=== PATIENT | male | born 1940 | race Caucasian/White ===

== ENCOUNTER 2016-08-13 09:00 | Emergency (ER) | payer MEDICARE, BC ==
[2016-02-23 07:06] VITALS: BMI 27.9
[~2016-08-13 09:00] MED LIST: ASPIRIN325 MG PO; CALTRATE-600600 MG PO; CARDURA2 MG PO; CORDARONE200 MG PO; COZAAR25 MG PO; FUROSEMIDE20 MG PO; GARLIC1 CAP PO; LASIX20 MG PO; LOVENOX40 MG/0.4 SC; MAGNESIUM OXID500 MG PO; MICRO-K10 MEQ PO; MIRALAX17 GM PO; OMEGA-3100 MG PO; OXYCODONE HCL5 MG PO; PLAVIX75 MG PO; PROSCAR5 MG PO; RESTORIL15 MG; RESTORIL15 MG PO; SAW PALMETTO450 MG PO; SENOKOT-S TABLE1 TAB PO; SYNTHROID150 MCG PO; SYNTHROID175 MCG PO; TENORMIN25 MG PO; TRIMETHOPRIM100 MG PO; VICODIN 5/500 T1 TAB
[2016-08-13 11:01] LABS: BASOPHILS 0.5 % (0.0-2.0); EOSINOPHILS 1.2 % (0-7); HEMATOCRIT 38.5 % (42.0-54.0); HEMOGLOBIN 12.8 g/dL (13.5-17.5); IMMATURE GRANULOCYTES 0.2 % (0-5); LYMPHOCYTES 11.2 % (15-50); MCH 31.8 pg (26.0-34.0); MCHC 33.2 g/dL (31.0-37.0); MCV 95.8 fL (80.0-100.0); NEUTROPHILS 77.9 % (40-80); PLATELET COUNT 134 10x3/uL (130-400); RBC 4.02 10x6/uL (4.20-6.10); WBC 6.4 10x3/uL (4.8-10.8)
[2016-08-13 11:38] LABS: ALBUMIN 3.3 g/dL (3.4-5.0); ALKALINE PHOSPHATASE 72 U/L (46-116); ALT (SGPT) 44 U/L (10-68); AMYLASE - SERUM 35 U/L (25-115); BILIRUBIN - TOTAL 0.63 mg/dL (0.2-1.3); CALC OSMOLALITY 275 mosm/kg (275-300); CALCIUM 8.1 mg/dL (8.5-10.1); CARBON DIOXIDE 30.2 mmol/L (21.0-32.0); CHLORIDE - SERUM 100 mmol/L (98-107); CREATININE - SERUM 0.7 mg/dL (0.6-1.3); GLUCOSE 119 mg/dL (74-106); LIPASE 96 U/L (73-393); MAGNESIUM - SERUM 2.5 mg/dL (1.8-2.4); POTASSIUM - SERUM 3.8 mmol/L (3.5-5.1); PROTEIN - SERUM 7.3 g/dL (6.4-8.2); SODIUM 136 mmol/L (136-145); UREA NITROGEN 22 mg/dL (7-18); eGFR NON AFRICAN AMERICAN > 90 mL/min (90-120)
[2016-08-14] MEDS ORDERED: K-DUR20 MEQ PO (20:19)
[2016-08-14] MEDS ORDERED: CORDARONE200 MG PO (20:19)
== END 2016-08-13 12:46 | disposition home or self-care (01) ==
LOC: D.ER 09:00
PROVIDERS: Emergency Medicine
DX: R10.9 Unspecified abdominal pain (principal); R18.8 Other ascites; I10 Essential (primary) hypertension; N40.0 Benign prostatic hyperplasia without lower urinary tract symptoms; E07.9 Disorder of thyroid, unspecified

== ENCOUNTER 2016-08-14 14:18 | Inpatient (IN) | payer MEDICARE, BC ==
[~2016-08-14] VITALS: Ht 167.6 cm; Wt 79.8 kg
[2016-08-14 15:39] LABS: TROPONIN-I 0.025 ng/mL (0.000-0.060)
--- NOTE | 2016-08-14 19:00 | NUR ---
REC'D IN ROOM FROM ER DEPT A 75 Y/O W/M PER SERVICES DR. DELAROSA WITH DX, ILEUS/ABDOMINAL PAIN. IV PATNT LEFT ARM OF DRLYNDSEY AT 75CC'S/HR. ALERT/ORIENTED X3 UP AD ROMERO IN ROOM.ASSESSMENT PER ADMIT PACKET.
[2016-08-14] MEDS ORDERED: K-DUR20 MEQ PO (20:19)
[2016-08-14] MEDS ORDERED: CORDARONE200 MG PO (20:19)
[2016-08-14 20:32] VITALS: BP 124/78; BMI 28.4
[2016-08-14 21:00] VITALS: BP 124/68
--- NOTE | 2016-08-14 21:30 | NUR ---
DR. DELAROSA HERE TO VISIT AND ASSESS PATIENT ORDERS REC'D.
--- NOTE | 2016-08-14 22:00 | NUR ---
PLACED ON TELM. SHOWS SB. HR 56-58. DENIES PAIN OR DISCOMFORT.
--- NOTE | 2016-08-14 23:45 | NUR ---
MEDS GIVEN PER MAR.
--- NOTE | 2016-08-15 00:30 | NUR ---
AWAKE ALERT WALKING IN HALLWAY.
[2016-08-15 01:30] VITALS: BP 106/51
[2016-08-15 04:00] VITALS: BP 128/58
--- NOTE | 2016-08-15 04:23 | NUR ---
STATES STOMACH STARTED BURNING AFTER HE DRANK SOME WATER. REMINDED PATIENT NPO STATUS EXCEPT MEDS FOR NOW.
[2016-08-15 05:35] LABS: CALC OSMOLALITY 268 mosm/kg (275-300); CALCIUM 8.9 mg/dL (8.5-10.1); CARBON DIOXIDE 30.9 mmol/L (21.0-32.0); CHLORIDE - SERUM 94 mmol/L (98-107); CKMB 4.2 U/L (0.0-3.6); CREATINE KINASE 168 UL (21-232); GLUCOSE 112 mg/dL (74-106); LIPASE 88 U/L (73-393); MAGNESIUM - SERUM 2.2 mg/dL (1.8-2.4); POTASSIUM - SERUM 3.5 mmol/L (3.5-5.1); SODIUM 132 mmol/L (136-145); THYROID STIMULATING HORMONE 6.67 uIU/mL (0.36-3.74); UREA NITROGEN 22 mg/dL (7-18); eGFR NON AFRICAN AMERICAN 69 mL/min (90-120)
[2016-08-15 05:48] LABS: AMYLASE - SERUM 44 U/L (25-115); CREATININE - SERUM 1.1 mg/dL (0.6-1.3)
--- NOTE | 2016-08-15 07:30 | NUR ---
TO XRAY PER WC FOR CXR.
--- NOTE | 2016-08-15 07:39 | HP ---
PATIENT: BRICE GEORGE MEDICAL RECORD: [id number] ACCOUNT: [id number] LOCATION:[id number] : 41 ADMISSION DATE: 08/14/16 HISTORY AND PHYSICAL EXAMINATION REASON FOR ADMISSION: Abdominal discomfort and jaw pain. HISTORY OF PRESENT ILLNESS: The patient is a 75-year-old male who incurred a myocardial infarction with congestive heart failure and cardiomyopathy last year. Dr. Andujar in February 2016 performed a sequential stenting of the LAD and circumflex arteries. He used drug-eluting stents. The patient went to a cardiac rehabilitation and had really done well. He states that yesterday afternoon, he has some right upper chest and jaw discomfort. Preceding that, he has been constipated for the last couple of days. He came to the Emergency Room for that reason, had an EKG and cardiac enzymes reportedly normal and was told to return home on his medications. He said his pain lasted about 5 minutes and resolved. ____ to have increasing abdominal discomfort and lack of bowel movements and nausea without vomiting, came back tonight and Dr. Graff felt he might have early small-bowel obstruction, has admitted the patient. He has had no further chest pain. PAST MEDICAL HISTORY: Raynaud's, congestive heart failure 2016 with CAD and myocardial infarction, paroxysmal atrial fibrillation, essential hypertension, hypothyroidism, history of prostatitis on chronic Bactrim therapy, had a thyroidectomy in the past for benign reasons, osteoarthritis, BPH, GERD, had a left hip fracture in August 2015 with a left hip gamma nail placed on 08/14/2015, and recent depression after of his from sudden . PAST SURGICAL HISTORY: Had a ventral hernia repair with mesh in 2012, umbilical hernia repair in the past as well as gamma nail placed left hip for fall on August 2015 and PTCA times 2 vessels, partial thyroidectomy. SOCIAL HISTORY: He is recently. Works part-time at [employer]. He is a non-smoker, nondrinker. ALLERGIES: LISINOPRIL AND SULFA. FAMILY HISTORY: Father at 75 from CAD and hypertension. Mother at 75 from Alzheimer's dementia. Paternal grandfather had cancer of the prostate. HOME MEDICATIONS: Trimpex 100 mg p.o. daily, Plavix 75 mg daily, losartan 50 mg p.o. daily, atenolol 12.5 mg p.o. daily, amiodarone 200 mg p.o. daily, omega 3 fatty acids 300 mg p.o. daily, oxycodone IR 10 mg q.4 hours p.r.n. pain, aspirin 325 mg a day, Lasix 20 mg p.o. q.a.m., KCl 20 mEq p.o. b.i.d. that is K-Dur. Levothyroxine 0.175 mg daily, finasteride 5 mg p.o. at bedtime. REVIEW OF SYSTEMS: GENERAL: He has felt pretty well the last 3 days. HEENT: No recent visual change, sinus congestion, or sore throat. RESPIRATORY: No SOB or cough. CARDIAC: He had right-sided chest and jaw pain that lasted 5 minutes yesterday. He has had no other recent exertional pain. Denies LANDRY or edema. GASTROINTESTINAL: He has had nausea without vomiting. He states he is not been able to pass stool in the last 3 days. His abdomen cramps at times, but he is not having severe pain. HISTORY AND PHYSICAL [id number] BRICE GEORGE GENITOURINARY: Has nocturia twice nightly. ENDOCRINE: Denies polyuria, polydipsia, heat or cold intolerance. NEUROLOGIC: No history of stroke, TIA, or vascular headaches. INTEGUMENT: No rash or itching. PSYCHIATRIC: Denies depressed mood currently. PHYSICAL EXAMINATION: VITAL SIGNS: Temperature 97.1 Fahrenheit orally, pulse 90 and regular, blood pressure has not been recorded, height 5 feet 11 inches, weight of 160 pounds, BMI of 22. GENERAL: The patient is in no acute distress. HEENT: Normocephalic. Eyes are clear and nonicteric. Oropharynx unremarkable. NECK: Supple. CHEST: Clear. HEART: Regular without MGR. PMI appropriate. ABDOMEN: Mildly distended with high pitched hyperactive bowel sounds. Healed midline surgical scar is noted, mesh is palpable in the abdomen. He has a small umbilical hernia that is reducible. GENITOURINARY: Unremarkable. EXTREMITIES: No CC&E. INTEGUMENT: No rash or petechiae. PSYCHOLOGIC: He appears upbeat. Denies suicidal or depressive loss. NEUROLOGIC: Oriented times 3. Cranial nerves intact. Gait not tested. Motor and sensory grossly intact on supine exam. Acute abdominal series shows prominent fecal filling of the colon, gas filling of small bowel loops in the mid abdomen, osteoporosis, gas pattern somewhat disproportionate and the small bowel could represent early ileus. LABORATORY DATA: Lab was not drawn tonight, but on yesterday's exam had a white count of 6000, H&H of 12.8 and 38.5 respectively, platelet count 134,000. BMP was normal except for BUN of 22, glucose of 119. Magnesium was high at 2.5. Liver functions were normal. Creatinine kinase 203. CPK-MB is 18.8, mildly elevated troponin 0.025. ProBNP 2971. EKG shows sinus bradycardia with a rate of 53, T-wave is flipped laterally V4 through V6. ASSESSMENT: 1. Left upper chest and neck pain suspicious for recurrent angina. 2. Sinus bradycardia with T-wave inversion laterally suggesting ischemia. 3. Constipation with abdominal pain. 4. History of systolic congestive heart failure. 5. History of myocardial infarction with LAD and circumflex PTCA 2016, hyperlipidemia, hypertension, osteoporosis, osteoarthritis, hypermagnesemia due to oral magnesium taken at home and hypothyroidism. PLAN: Place on rolled glass crosscutter, serial cardiac enzymes. Cardiology consult with Dr. Andujar. We will hold n.p.o. at this time except for essential meds. We will resume his Plavix tonight, which he has been as yesterday. We will also have the patient use rectal suppositories to relieve his constipation. Further workup pending clinical course. TRANSINT:[id number] Voice Confirmation ID: [id number] DOCUMENT ID: [id number] HISTORY AND PHYSICAL [id number] BRICE GEORGE TIMOTHY MD at 0739 CC: [id number] DICTATION DATE: 08/14/16 2144 DOUBLER HELPER: 08/15/16 0019 ADM IN [place] [address] [place] [address]
[2016-08-15 07:48] VITALS: BP 136/58
--- NOTE | 2016-08-15 08:30 | NUR ---
FLEETS ENEMA GIVEN. HE WAS UNSUCESSFUL GETTING TO THE RESTROOM AND LOST LOOSE STOOL ON THE BED AND FLOOR. HE STATES THAT HE DID PASS SOME SOLID STOOL. NOW IN THE SHOWER.
--- NOTE | 2016-08-15 09:45 | NUR ---
PATIENT STATES THAT ALTHOUGH HE HAD A BM HE FEELS LIKE HE LIKELY HAS MORE STOOL DUE TO HIM NOT HAVING A BM IN A COUPLE OF DAYS. HE DENIES NAUSEA AT THIS TIME. STATES THAT HE IS TIRED. DENIES CRAMPING/ PAIN IN ABDOMEN.
--- NOTE | 2016-08-15 11:30 | NUR ---
PATIENT IS REQUESTING CL. SPOKE WITH NURSE AT [facility]. PATIENT TO REMAIN NPO.
[2016-08-15 12:27] VITALS: BP 110/68
[2016-08-15 14:45] VITALS: Ht 167.6 cm; Wt 79.8 kg
[2016-08-15 16:05] VITALS: BP 106/64
--- NOTE | 2016-08-15 16:07 | NUR ---
Patient Name: BRICE GEORGE Admission Status: Elective Accout number: [id number] Admission Date: 08-15-2016 : 1940 Admission Diagnosis: Attending: CARLIN Current LOS: 1 Anticipated DC Date: 08-19-2016 Planned Disposition: Home Primary Insurance: MEDICARE A & B Discharge Planning Comments: CM MET WITH PATIENT REGARDING D/C NEEDS AND PLANS. PATIENT STATED HE HAS 3 STEPS W/RAILS TO ENTER HIS HOME AND NO STAIRS INSIDE. PATIENT STATES HE IS INDEPENDENT WITH HIS CARE AND HAS AWALKER, SHOWER CHAIR, AND BS COMMODE AT HOME. PATIENTS PCP IS DR. DELAROSA AND PHARMACY IS [facility] [address]. PATIENT DENIED NEED FOR HOME HEALTH AT THIS TIME. CM WILL CONTINUE TO FOLLOW PATIENT WITH D/C NEEDS AND PLANS. PCP DR. [facility] [place] [phone]) PARRISH (SON) [phone] Bus System Operator: Leslie Tran Is the patient Alert and Oriented? Yes 0 * How many steps to enter\exit or inside your home? 3 /RAILS 0 * PCP DR. DELAROSA 0 * Pharmacy [facility] [address] 0 * Preadmission Environment Home Alone 0 * ADLs Independent 0 * Equipment Bedside Commode Shower Chair Walker 0 * List name and contact numbers for known caregivers / representatives who currently or will assist patient after discharge: PARRISH (SON) [phone] 0 * Community resources currently utilized None 0 * Additional services required to return to the preadmission environment? Yes 0 * Can the patient safely return to the preadmission environment? Yes 0 * Has this patient been hospitalized within the prior 30 days at any hospital? No 0 Grand Total: 0
--- NOTE | 2016-08-15 17:20 | NUR ---
PATIENT HAS SIGNED HIS CONSENTS FOR SURGERY. HE DENIES QUESTIONS.
--- NOTE | 2016-08-15 18:48 | NUR ---
PATIENT RESTING ON HIS RIGHT SIDE. EYES CLOSED AND HE DOESN'T AWAKEN TO MY ENTRY. RESPIRATIONS ARE DEEP AND EVEN.
--- NOTE | 2016-08-15 19:33 | NUR ---
PATIENT RESTING WITH EYES CLOSED. NO VISIBLE SIGNS OF DISTRESS. BED IN LOWEST POSITION AND CALL LIGHT WITHIN REACH.
--- NOTE | 2016-08-15 21:29 | NUR ---
HR BEFORE SURGERY WAS 50 PER ANESTHESIA
[2016-08-15 21:44] VITALS: BP 126/63
--- NOTE | 2016-08-15 21:45 | NUR ---
RECEIVED PATIENT FROM SURGERY. PATIENT IS ALERT AND ORIENTED WITH NO SIGNS OF DISTRESS.
[2016-08-16 04:00] VITALS: BP 156/65
--- NOTE | 2016-08-16 07:00 | NUR ---
REPORT RECIEVED ASSUMED CARE. PATIENT IN BED WITH IV INTACT. NO COMPLAINTS AT THIS TIME. CALL LIGHT WITHIN REACH.
[2016-08-16 08:13] VITALS: BP 152/68
[2016-08-16 12:18] VITALS: BP 169/70
--- NOTE | 2016-08-16 14:19 | OP ---
PATIENT NAME: BRICE GEORGE MEDICAL RECORD: [id number] :41 LOCATION:[facility] ADMISSION DATE:08/15/16 SURGEON: VETO ROBERTS MD DATE OF OPERATION: 08/15/2016 ATTENDING PHYSICIAN: Richmond Isaac MD SURGEON: Veto Roberts MD DISINTEGRATOR OPERATOR: None. ANESTHESIA: Dr. Greta Carr and Adelaida Fernandez CRNA. ANESTHESIA TYPE: MAC. FINDINGS: Obstructive trilobar hyperplasia of the prostate with urinary retention. PROCEDURE: Cabrera catheter insertion after cystoscopy. SPECIMEN: Urine for culture. PREOPERATIVE DIAGNOSIS: Urinary retention, inability to be catheterized. ESTIMATED BLOD LOSS: None. CLINICAL HISTORY: This is a 75-year-old male who have a history of coronary artery disease. He has 3 coronary artery stents with the last one being placed in February 2016. He is currently on Plavix. He is on nitroglycerin for angina. He came to the hospital with a right-sided chest pain radiating to the angle of the jaw. He also complained of abdominal pain. He was seen by general surgery and thought to possibly have a bowel obstruction. He has been n.p.o. For fluid management, Cabrera catheter was desired to be inserted. However, the nurses on the floor had great difficulty inserting a Cabrera catheter. The patient has a history of BPH. He is seeing urologist at another facility. The urologist had suggested to the patient that he needed to have a TURP performed, but because of the patient having a coronary artery stent and anticoagulation in the meantime, the procedure was held off. When I saw the patient in consultation, I tried to use filiform and followers to get past the obstructive prostate. The filiform would pass into the bladder, but I could not get the follower to get pass. When we scanned the patient's bladder, he had about 1 liter in post-void residual. Instead of struggling blindly, I decided to bring him to the operating room and insert the Cbarera catheter under direct visual guidance with the cystoscope. His creatinine is normal. He is still on Plavix and aspirin. He has been n.p.o. since yesterday. He was given Ancef 1 gram IV marble installation helper to the OR. Because of the expected brevity of the procedure, we did not put him to sleep, but instead just gave him MAC. DESCRIPTION OF PROCEDURE: The patient was given his IV antibiotics. He was placed in the dorsal lithotomy position and prepped and draped. A 21-Burundian cystoscope with 30-degree lens was used for visualization. We used sterile water for irrigation. The penile urethra shows no evidence of a stricture. Prostatic urethra shows obstructive BPH. There is trilobar hyperplasia of the prostate. With the scope and under direct visualization, we managed to get pass the obstructive prostatic urethra into the bladder. The bladder shows some OPERATIVE REPORT [id number] BRICE GEORGE gross hematuria, which is possibly from the overdistention of the bladder. It was difficulty to perform a good cystoscopy due to the hematuria. A Sensor wire was placed through the scope into the bladder. We then evacuated some of the bladder urine and obtained the specimen for culture. The scope was then removed, leaving the wire in place. Over the wire, a 16-Burundian silicone Councill tip catheter was placed into the bladder. Once we were fully into the bladder, the balloon was inflated with 10 cc of sterile water. The Sensor wire was then entirely removed. The Cabrera catheter was put to bag drainage. The patient was then brought to the recovery room and from there he will be brought back to the floor. TRANSINT:[id number] Voice Confirmation ID: [id number] DOCUMENT ID: [id number] VETO ROBERTS MD at 1419 CC: [id number] DICTATION DATE: 08/15/162123 GUEST SERVICE REPRESENTATIVE: 08/16/16 0053 [facility] IN [facility] [address] [place] [address]
[2016-08-16 15:52] VITALS: BP 174/71
[2016-08-16 17:14] LABS: BASOPHILS 0.6 % (0.0-2.0); EOSINOPHILS 1.5 % (0-7); HEMATOCRIT 35.1 % (42.0-54.0); HEMOGLOBIN 11.5 g/dL (13.5-17.5); IMMATURE GRANULOCYTES 0.4 % (0-5); LYMPHOCYTES 17.8 % (15-50); MCH 31.4 pg (26.0-34.0); MCHC 32.8 g/dL (31.0-37.0); MCV 95.9 fL (80.0-100.0); MEAN PLATELET VOLUME 10.8 fL (7.4-10.4); MONOCYTES 15.1 % (2-11); NEUTROPHILS 64.6 % (40-80); PLATELET COUNT 132 10x3/uL (130-400); RBC 3.66 10x6/uL (4.20-6.10); RDW 13.2 % (11.5-14.5); WBC 5.2 10x3/uL (4.8-10.8)
[2016-08-16 18:24] LABS: ALKALINE PHOSPHATASE 57 U/L (46-116); ALT (SGPT) 18 U/L (10-68); BILIRUBIN - TOTAL 0.53 mg/dL (0.2-1.3); CARBON DIOXIDE 30.1 mmol/L (21.0-32.0); CHLORIDE - SERUM 89 mmol/L (98-107); GLUCOSE 100 mg/dL (74-106); MAGNESIUM - SERUM 1.7 mg/dL (1.8-2.4); PHOSPHOROUS 3.3 mg/dL (2.5-4.9); POTASSIUM - SERUM 3.1 mmol/L (3.5-5.1); PROTEIN - SERUM 6.5 g/dL (6.4-8.2); SODIUM 123 mmol/L (136-145)
[2016-08-16 18:39] LABS: CALC OSMOLALITY 246 mosm/kg (275-300); CREATININE - SERUM 0.8 mg/dL (0.6-1.3); UREA NITROGEN 10 mg/dL (7-18); eGFR NON AFRICAN AMERICAN > 90 mL/min (90-120)
--- NOTE | 2016-08-16 18:55 | NUR ---
PATIENT RECIEVED ENEMA AT THIS TIME ORDERED. TOLERATED WITH SMALL AMOUNT OF DISCOMFORT. EXPLAINED TO NOTIFY NURSE WHEN READY TO FINISH THE REST OF THE SOAP SUDS ENEMA. VERBALIZED UNDERSTANDING. CALL LIGHT WITHIN REACH.
[2016-08-16 19:00] VITALS: BP 186/80
--- NOTE | 2016-08-16 20:05 | NUR ---
PT RECIEVED ON ROUNDS NO ACUTE DISTRESS NOTED AWAKE AND ALERT ORIENTED X 3 LUNGS CLAER BILATERALLY HAS BLODDY URINE NOTED TO WOO PER GRAVITY FLOW. HAS HAD SMALL AMOUT OF BOWEL MOVEMENT NOTED. WILL GIVE ENEMA PER ORDER FOR RESULTS. SCDS IN ROOM AT NIGHT. WILL MONITOR.
[2016-08-16 20:48] LABS: APPEARANCE HAZY (CLEAR); BILIRUBIN NEGATIVE (NEGATIVE); COLOR RED (YELLOW); GLUCOSE NEGATIVE (NEGATIVE); KETONE NEGATIVE (NEGATIVE); LEUKOCYTE ESTERASE NEGATIVE (NEGATIVE); NITRITE NEGATIVE (NEGATIVE); PROTEIN 1+ mg/dL (NEGATIVE); UROBILINOGEN NORMAL (NORMAL); WHITE CELLS - URINE 0-5 /hpf (0-5)
[2016-08-16 20:49] LABS: RED CELLS - URINE >50 /hpf (0-5)
--- NOTE | 2016-08-16 23:53 | NUR ---
PT GIVEN SOAP SUDS ENEMA PER ORDER 1500 ML WARM LIQUID WITH SOAP HAS HAS MODERATE IMMEDIATE RESULT WILL AWAIT FURTHER RESULT.
--- NOTE | 2016-08-17 00:20 | NUR ---
HELPED PATIENT GET BACK INTO BED AFTER ENEMA AND ADMINISTERED REGLAN. PATIENT HAS NO VISIBLE SIGNS OF DISTRESS AND DENIES OTHER NEEDS AT THIS TIME. BED IN LOWEST POSITION AND CALL LIGHT WITHIN REACH. ENCOURAGED PATIENT TO CALL IF HE HAS OTHER NEEDS.
[2016-08-17 04:00] VITALS: BP 143/71
[2016-08-17 06:31] LABS: BASOPHILS 0.4 % (0.0-2.0); EOSINOPHILS 2.8 % (0-7); HEMATOCRIT 33.1 % (42.0-54.0); HEMOGLOBIN 10.9 g/dL (13.5-17.5); IMMATURE GRANULOCYTES 0.2 % (0-5); LYMPHOCYTES 23.8 % (15-50); MCH 31.1 pg (26.0-34.0); MCHC 32.9 g/dL (31.0-37.0); MCV 94.3 fL (80.0-100.0); MEAN PLATELET VOLUME 10.6 fL (7.4-10.4); NEUTROPHILS 58.8 % (40-80); PLATELET COUNT 131 10x3/uL (130-400); RBC 3.51 10x6/uL (4.20-6.10); RDW 13.1 % (11.5-14.5); WBC 4.7 10x3/uL (4.8-10.8)
[2016-08-17 07:19] LABS: ALBUMIN 2.7 g/dL (3.4-5.0); ALKALINE PHOSPHATASE 56 U/L (46-116); CALC OSMOLALITY 269 mosm/kg (275-300); CALCIUM 7.7 mg/dL (8.5-10.1); CARBON DIOXIDE 28.1 mmol/L (21.0-32.0); CHLORIDE - SERUM 101 mmol/L (98-107); CREATININE - SERUM 0.7 mg/dL (0.6-1.3); GLUCOSE 101 mg/dL (74-106); PROTEIN - SERUM 6.1 g/dL (6.4-8.2); SODIUM 136 mmol/L (136-145); UREA NITROGEN 7 mg/dL (7-18); eGFR NON AFRICAN AMERICAN > 90 mL/min (90-120)
[2016-08-17 07:20] LABS: ALT (SGPT) 35 U/L (10-68)
--- NOTE | 2016-08-17 07:35 | NUR ---
PT RESTING IN BED, REQUESTING FOOD, MOUTH SWABS GIVEN, NO OTHER NEEDS, CALL LIGHT IN REACH, BED LOWEST POSITION, SIDE RAILS UP X2, WILL CONTINUE TO MONITOR
[2016-08-17 08:50] VITALS: BP 157/61
[2016-08-17 12:48] VITALS: BP 173/76
--- NOTE | 2016-08-17 13:14 | NUR ---
NUTRITION MONITORING & EVAL CHART REVIEWED. CLEAR LIQUID DIET STARTED. WILL MONITOR DIET ADVANCEMENT, PT PROGRESS. RD FOLLOWING
--- NOTE | 2016-08-17 14:19 | NUR ---
PATIENT IS AWAKE, ALERT AND ORIENTED X'S 4. RESPIRATIONS ARE EVEN AND UNLABORED ON ROOM AIR. PATIENT STATED HE FEELS LIKE HE CAN TOLERATE A REGULAR DIET. ASKED FOR ME TO FILL OUT A MENU FOR DINNER. OBTAINED ORDER. PUT IN REQUEST. PATIENT DENIES FUTHER NEEDS. WOO CATHETER DRAINING TO GRAVITY. URINE IS RED TINGED.
[2016-08-17 16:34] VITALS: BP 159/79
[2016-08-17 19:00] VITALS: BP 133/62
[2016-08-18] VITALS: BP 158/77
[2016-08-18 04:00] VITALS: BP 169/74
[2016-08-18 06:33] LABS: CALC OSMOLALITY 273 mosm/kg (275-300); CALCIUM 8.2 mg/dL (8.5-10.1); CARBON DIOXIDE 28.5 mmol/L (21.0-32.0); CHLORIDE - SERUM 103 mmol/L (98-107); CREATININE - SERUM 0.7 mg/dL (0.6-1.3); GLUCOSE 98 mg/dL (74-106); SODIUM 138 mmol/L (136-145); UREA NITROGEN 8 mg/dL (7-18); eGFR NON AFRICAN AMERICAN > 90 mL/min (90-120)
--- NOTE | 2016-08-18 07:55 | NUR ---
PATIENT ALERT IN LOW SALAZAR POSITION WITH MAYCO NURSE AID AT BEDSIDE. RESPIRATIONS EVEN AND UNLABORED. SIDE RAILS UP X2. BED IN LOW POSITION. CALL LIGHT IN REACH.
--- NOTE | 2016-08-18 08:19 | NUR ---
PT AWAKE AND ALERT ORINETD X 3 LUNGS CLEAR BIALTERALY HAS WOO PATENT TO BLOODY URINE PER GRAVITY FLOW. NOTED TO HAVE ITCHING HIVE RASH SPOKE WITH DR DELAROSA NOTED NEW ORDER FOR ANXIETY MEDS WILL TREAT PER ORDER.
[2016-08-18 08:47] VITALS: BP 171/81
[2016-08-18 13:06] VITALS: BP 165/78
[2016-08-18 16:19] LABS: BASOPHILS 0.4 % (0.0-2.0); EOSINOPHILS 8.6 % (0-7); HEMATOCRIT 36.2 % (42.0-54.0); HEMOGLOBIN 11.9 g/dL (13.5-17.5); IMMATURE GRANULOCYTES 0.4 % (0-5); LYMPHOCYTES 17.7 % (15-50); MCH 31.3 pg (26.0-34.0); MCHC 32.9 g/dL (31.0-37.0); MCV 95.3 fL (80.0-100.0); MEAN PLATELET VOLUME 10.8 fL (7.4-10.4); MONOCYTES 15.3 % (2-11); NEUTROPHILS 57.6 % (40-80); PLATELET COUNT 146 10x3/uL (130-400); RDW 13.1 % (11.5-14.5); WBC 5.7 10x3/uL (4.8-10.8)
--- NOTE | 2016-08-18 19:30 | NUR ---
PT RECEIVED SITTING UP IN ROOM WATCHING TELEVISION. PT IS ALERT AND ORIENTED X 4. LUNG SOUNDS CLEAR BILATERALLY. RESPIRATIONS EVEN AND UNLABORED. BOWEL SOUNDS ACTIVE IN ALL FOUR QUADRANTS. ABD SOFT AND NONTENDER UPON PALPATION. PT DENIES PAIN OR DISCOMFORT AT THIS TIME. SURGICAL CONSENTS SIGNED BY PATIENT. CALL LIGHT AND FLUIDS IN REACH.
[2016-08-18 20:00] VITALS: BP 152/69
--- NOTE | 2016-08-18 21:30 | NUR ---
PT UP IN BED WATCHING TELEVISION. NO S/S OF DISTRESS NOTED. RESP EVEN AND UNLABORED. RESIDENT DENIES PAIN OR NEEDS AT THIS TIME. WOO CATH IN PLACE, BRIGHT RED RETURN NOTED. CALL LIGHT AND FLUIDS IN PT REACH.
--- NOTE | 2016-08-18 22:25 | NUR ---
PT IS ASLEEP IN BED WITH THE TV ON AND LIGHTS STILL ON. HIS RESPIRATIONS ARE EASY AND HE HAS COFFEE SITTING BESIDE HIM IF HE WERE WATCHING TV AND FELL ASLEEP. IV FLUIDS OF D51/2NS WITH 10 K IFUSING ORDERED. THE BED IS LOW, RAILS UP X'S 2 WITH THE CALL LIGHT AT HAND.
[2016-08-19] VITALS (11 sets, daily range): BP systolic 115–166; BP diastolic 55–77
--- NOTE | 2016-08-19 | NUR ---
PT CURRENTLY RESTING IN BED WITH EYES CLOSED. NO S/S OF DISTRESS NOTED AT THIS TIME. RESPIRATIONS ARE EVEN AND UNLABORED. PT NPO D/T SURGERY SCHEDULED FOR AM. CALL LIGHT IN PT REACH.
--- NOTE | 2016-08-19 02:01 | NUR ---
PT RESTING IN BED WITH EYES CLOSED. NO S/S OF DISTRESS NOTED. RESP EVEN AND UNLABORED. CONTINUES WITH NPO ORDERS. CALL LIGHT IN REACH.
--- NOTE | 2016-08-19 04:16 | NUR ---
PT RESTING IN BED WITH EYES CLOSED. NO S/S OF DISTRESS NOTED. PT AROUSES TO VERBAL STIMULI, DENIES PAIN OR NEEDS AT THIS TIME. PT CONTINUES TO BE NPO. CALL LIGHT IN PT REACH.
[2016-08-19 05:05] LABS: BASOPHILS 0.4 % (0.0-2.0); HEMATOCRIT 32.8 % (42.0-54.0); HEMOGLOBIN 10.9 g/dL (13.5-17.5); IMMATURE GRANULOCYTES 0.2 % (0-5); LYMPHOCYTES 21.6 % (15-50); MCH 31.1 pg (26.0-34.0); MCHC 33.2 g/dL (31.0-37.0); MCV 93.7 fL (80.0-100.0); MEAN PLATELET VOLUME 10.9 fL (7.4-10.4); MONOCYTES 13.2 % (2-11); NEUTROPHILS 53.6 % (40-80); PLATELET COUNT 146 10x3/uL (130-400); WBC 5.3 10x3/uL (4.8-10.8)
[2016-08-19 05:36] LABS: CALCIUM 8.2 mg/dL (8.5-10.1); CARBON DIOXIDE 29.1 mmol/L (21.0-32.0); CHLORIDE - SERUM 103 mmol/L (98-107); CREATININE - SERUM 0.8 mg/dL (0.6-1.3); GLUCOSE 109 mg/dL (74-106); SODIUM 137 mmol/L (136-145); eGFR NON AFRICAN AMERICAN > 90 mL/min (90-120)
[2016-08-19 05:37] LABS: CALC OSMOLALITY 273 mosm/kg (275-300); POTASSIUM - SERUM 3.5 mmol/L (3.5-5.1); UREA NITROGEN 11 mg/dL (7-18)
--- NOTE | 2016-08-19 06:34 | NUR ---
PT RECEIVED PRE-OP MEDS. CLEANSED WITH HIBICLENSE WIPES. PETER FROM SURGERY TAKING PT TO SURGERY.
--- NOTE | 2016-08-19 07:40 | NUR ---
GONE TO SURGERY
--- NOTE | 2016-08-19 10:32 | NUR ---
700CC OF PINK URINE IN WOO BAG ON ADMIT
--- NOTE | 2016-08-19 12:45 | NUR ---
PATIENT SITTING UP IN BED WITH IV INTACT. NO COMPLAINTS. EATING REGULAR DIET AT THIS TIME. CALL LIGHT WITHIN REACH.
--- NOTE | 2016-08-19 13:23 | NUR ---
Nutrition Follow Up: Pt is eating 100% meal avg on a regular diet. Wt stable. +BM 08/18/16. I<O. Meds noted including D5 1/2 NS KCl @ 50 ml/hr. Labs noted. Rec continue current diet as tolerated. RD following.
--- NOTE | 2016-08-19 19:42 | NUR ---
PT RECEIVED SITTING UP IN CHAIR IN ROOM TALKING ON TELEPHONE. PT IS ALERT AND ORIENTED X4. LUNG SOUNDS CLEAR BILATERALLY. RESPIRATIONS ARE EVEN AND UNLABORED. BOWEL SOUNDS ACTIVE IN ALL 4 QUADRANTS. ABD SOFT AND NONTENDER UPON PALPATION. WOO CATHETER IN PLACE, SECURED WITH STAT-LOCK. RED OUTPUT NOTED. PT DENIES PAINT AT THIS TIME. CALL LIGHT AND FLUIDS IN PT REACH.
[2016-08-20] VITALS: BP 132/65
--- NOTE | 2016-08-20 00:21 | NUR ---
PT UP OUT OF BED AND AMBULATING. PT IV CORD TANGLED AROUND POLE AND IV CAME OUT OF ARM. IV RESTARTED IN RIGHT FOREARM X4 ATTEMPTS. PT TOLERATED WELL. IV CURRENTLY PATENT. CALL LIGHT AND FLUIDS IN REACH.
--- NOTE | 2016-08-20 01:34 | NUR ---
ASLEEP WITH THE TV ON SITTING UP STRAIGHT. LIGHTS ARE ON AT THIS TIME AND HE IS USUALLY ABOUT ROOM AND AWAKE ALOT AT NIGHT. THE BED IS LOW, RAILS UP X'S 2 WITH THE CALL LIGHT AT HAND.
--- NOTE | 2016-08-20 01:59 | NUR ---
PT RESTING IN BED WITH EYES CLOSED. NO S/S OF DISTRESS NOTED. RESP EVEN AND UNLABORED. AROUSES TO VERBAL STIMULI. CATHETER IN PLACE WITH RED RETURN NOTED. CALL LIGHT AND H2O IN PT REACH.
[2016-08-20 04:00] VITALS: BP 124/52
[2016-08-20 07:25] LABS: BASOPHILS 0.3 % (0.0-2.0); EOSINOPHILS 8.4 % (0-7); HEMATOCRIT 32.4 % (42.0-54.0); HEMOGLOBIN 10.8 g/dL (13.5-17.5); IMMATURE GRANULOCYTES 0.1 % (0-5); LYMPHOCYTES 18.3 % (15-50); MCH 31.3 pg (26.0-34.0); MCHC 33.3 g/dL (31.0-37.0); MCV 93.9 fL (80.0-100.0); MEAN PLATELET VOLUME 11.3 fL (7.4-10.4); MONOCYTES 13.9 % (2-11); PLATELET COUNT 144 10x3/uL (130-400); RBC 3.45 10x6/uL (4.20-6.10); RDW 13.2 % (11.5-14.5); WBC 6.7 10x3/uL (4.8-10.8)
[2016-08-20 07:47] LABS: CALC OSMOLALITY 266 mosm/kg (275-300); CALCIUM 8.2 mg/dL (8.5-10.1); CARBON DIOXIDE 28.2 mmol/L (21.0-32.0); CHLORIDE - SERUM 100 mmol/L (98-107); CREATININE - SERUM 0.9 mg/dL (0.6-1.3); GLUCOSE 102 mg/dL (74-106); POTASSIUM - SERUM 3.7 mmol/L (3.5-5.1); SODIUM 133 mmol/L (136-145); eGFR NON AFRICAN AMERICAN 88 mL/min (90-120)
[2016-08-20 07:49] LABS: UREA NITROGEN 14 mg/dL (7-18)
--- NOTE | 2016-08-20 07:55 | NUR ---
Received patient up in room, alert and oriented. Verbalized name and . Cabrera catheter patient. Verbalized no compliants.
[2016-08-20 09:32] VITALS: BP 154/80
--- NOTE | 2016-08-20 12:10 | NUR ---
IV saline locked, patent with intact dressing. Patient without any compliants.
--- NOTE | 2016-08-20 13:01 | OP ---
PATIENT NAME: BRICE GEORGE MEDICAL RECORD: [id number] :41 LOCATION:[facility] ADMISSION DATE:08/15/16 SURGEON: ROBLES ROBERTS MD DATE OF OPERATION: 08/19/2016 SURGEON: Robles Roberts M.D. PROFILE STITCHING MACHINE OPERATOR SURGEON: None. ANESTHESIOLOGIST: Spinal anesthesia by Dr. Satinder Tamez, and ____, CRANK HAND student. FINDINGS: Very enlarged prostate with obstructive median lobe and lateral lobes. Bleeding from prostatic veins. PROCEDURE: Cystoscopy, GreenLight laser transurethral resection of the prostate, laser on time 35 minutes and 25 seconds, laser energy 241,792 joules. SPECIMENS: None. PREOPERATIVE DIAGNOSES: Obstructive benign prostatic hypertrophy with urinary retention and gross hematuria. CLINICAL HISTORY: This is a 75-year-old man, who came into the hospital with abdominal and chest pain. He has a history of coronary artery disease and he has 3 coronary artery stents. The last one was placed in February 2016. He is on Plavix and aspirin. He also have a history of BPH for which he is seeing another urologist. The other urologist had suggested a TURP in the past, but the patient's coronary artery disease intervened and since he was on Plavix and aspirin. No surgery was proposed. In the hospital, the patient developed urinary retention. The Cabrera catheter could not be placed. I had to bring him to the OR and insert a Cabrera catheter over a guidewire. Even though he still continued to have gross hematuria. We stopped his aspirin and Plavix after cardiology said it was fine to do so. They also gave him clearance for surgery. I discussed having a GreenLight laser TURP. The patient would like to be free of the Cabrera catheter and he wishes to proceed with surgery. The risks of surgery including bleeding, infection, urinary incontinence, persistence of urinary retention, retrograde ejaculation and regrowth of the prostate was explained. He is aware of these issues and he would like to proceed with surgery. He was given Ancef 1 gram IV sr. manager corporate communications to the OR. His preoperative hemoglobin was somewhat low at 10.9 and I did cross match him for 2 units of packed red blood cells in case of need. DESCRIPTION OF PROCEDURE: The patient was given a spinal anesthetic. He was then placed in the dorsal lithotomy position and prepped and draped. Cystoscopy was performed using a 22-Kiswahili cystoscope with 30-degree lens. The verumontanum was seen. A very large obstructive lateral lobes were also noted. The patient has a very tall median, lobe which enters into the bladder neck. The median lobe made visualization of the ureteral orifice is very difficult. I spent a considerable amount of time trying to find the ureteral orifices, but I could not. The most likely causes of the ureteral orifices are somewhere behind and lateral to the median lobe. We then switched over to the laser resectoscope. The urethra was dilated to 32-Kiswahili. The 28-Kiswahili laser resectoscope with continuous flow sheath was inserted. The laser fiber was introduced. OPERATIVE REPORT [id number] BRICE GEORGE Using an initial power of 80 devlin, we started resection of the median lobe at the 12 o'clock position. I stayed in the posterior plane primarily because I did not know where the ureteral orifices is where. The median lobe was resected to create a channel in the 12 o'clock position. This allowed better water flow. I then worked on the lateral lobes to resect the lateral lobe from the bladder neck all the way to proximal to the verumontanum. The patient initially had a very vascular prostatic urethra, which kept bleeding with venous bleeding. As we coagulated and vaporize the tissue, the bleeding actually sees and our visualization got much better. Toward the end of the procedure, we had removed enough tissue from the lateral lobes and the median lobe that I thought he would have an adequate channel to void through. Enough tissue had been removed from the median lobes as I was able to identify the ureteral orifices on each side and both ureteral orifices were normal and they were uninjured. They are some distance proximal to the median lobe and lateral to it. At this point, I decided that we should stop the procedure and we attempted to introduce a 22-Kiswahili 3-way Cabrera catheter. This encountered significant resistance from the somewhat ragged tissue. I changed to the cystoscope and introduced a Sensor wire into the bladder. The scope was then removed, leaving the wire in place. We tried to introduce a 24-Kiswahili 3-way point lay ira tip catheter, but this again got caught up in the ragged tissue, especially in the median lobe. At this point, I decided to resect some more tissue to create a smoother channel for passage of the catheter. The median lobe tissue being the main obstructive site. We went back with 150 devlin on the laser fiber. Now that I could clearly see where the ureteral orifices is where, I started resecting the median lobe from the lateral edges heading towards the midline. In this way, I completely removed the obstruction from median lobe all together. Some of the lateral lobe near the bladder neck was also cleaned up in order to allow a smooth catheter passage. This further resection took our laser energy up all the way up to 241.8 kilojoules. Again, I tried to insert the catheter over a wire. This again encountered difficulty. I finally used a catheter guide and bending it into a curve at the tip. I was able to introduce the catheter into the bladder. The catheter guide was removed. The catheter did not spring back as it kept doing before. I irrigated the catheter. I noted good return. The Cabrera catheter balloon was inflated with 20 cc of sterile water. The inflow port of the 3-way Cabrera catheter was plugged with a catheter plug. It is there in case we need to run continuous bladder irrigation. A catheter was put to bag drainage. The urinary drainage was very light pink in color. The patient will be brought back to his hospital bed. TRANSINT:[id number] Voice Confirmation ID: [id number] DOCUMENT ID: [id number] ROBLES ROBERTS MD at 1301 CC: [id number] DICTATION DATE: 08/19/16 1019 PROGRAM MANAGER ENVIRONMENTAL PLANNING: 08/19/16 1727 ADM IN [facility] [address] [place] [address]
[2016-08-20 13:46] VITALS: BP 138/82
--- NOTE | 2016-08-20 14:23 | NUR ---
Urologist has visited patient and states ok with him for discharge, change bedside drainage bag to leg bag, send new bedside drainage bag home with patient and he will see him Monday to remove barrientos catheter. Discharge must be ordered per PCP, Dr. Yusuf here business continuity manager for Dr. Isaac. Orders to be written for discharge. Telemetry and saline lock right forearm removed. Patient anxious about leaving.
--- NOTE | 2016-08-20 14:50 | NUR ---
Discharge instructions given, taught on follow up with Urologist Dr. Barrera on Monday and schedule appointment with Dr. Isaac for follow up. Taught on Cabrera catheter care. Verbalized understanding.
== END 2016-08-20 14:50 | disposition home or self-care (01) | DRG 985 ==
LOC: D.ER 14:18 → D.MS 17:58 → OBSVTIME 17:58 → D.MS 08-15 12:17
PROVIDERS: Emergency Medicine; Urology; ADMIT Family Medicine
PROC: 0T9B80Z Drainage of Bladder with Drainage Device, Via Natural or Artificial Opening Endoscopic (ICD-10-PCS; principal; 2016-08-15 19:15)
PROC: 0VB08ZZ Excision of Prostate, Via Natural or Artificial Opening Endoscopic (ICD-10-PCS; 2016-08-19 07:30)
DX: K56.7 Ileus, unspecified (principal); N13.8 Other obstructive and reflux uropathy; I50.22 Chronic systolic (congestive) heart failure; I48.0 Paroxysmal atrial fibrillation; R07.9 Chest pain, unspecified; R68.84 Jaw pain; K59.00 Constipation, unspecified; N40.1 Benign prostatic hyperplasia with lower urinary tract symptoms; R33.8 Other retention of urine; R31.9 Hematuria, unspecified; I25.10 Atherosclerotic heart disease of native coronary artery without angina pectoris; I25.2 Old myocardial infarction; I11.0 Hypertensive heart disease with heart failure; E03.9 Hypothyroidism, unspecified; K21.9 Gastro-esophageal reflux disease without esophagitis; Z95.5 Presence of coronary angioplasty implant and graft; E83.41 Hypermagnesemia; M81.0 Age-related osteoporosis without current pathological fracture; M19.90 Unspecified osteoarthritis, unspecified site

== ENCOUNTER → 2016-09-06 17:03 | Outpatient (CLI) | payer MEDICARE, BC ==
[2016-08-15 14:45] VITALS: BMI 28.4
[~2016-09-06 17:03] MED LIST changes: +BAYER CHEWABLE81 MG PO; +CYCLOBENZAPRINE10 MG PO; +K-DUR20 MEQ PO; +ULTRAM50 MG PO
== END | disposition home or self-care (01) ==
LOC: D.LABREF 17:03
DX: N40.1 Benign prostatic hyperplasia with lower urinary tract symptoms (principal); R31.9 Hematuria, unspecified; R33.8 Other retention of urine; N13.8 Other obstructive and reflux uropathy

== ENCOUNTER 2016-10-08 19:30 | Observation (INO) | payer MEDICARE, BC ==
[~2016-10-08] VITALS: Ht 167.6 cm; Wt 82.0 kg
[~2016-10-08 19:30] MED LIST changes: -BAYER CHEWABLE81 MG PO; -CYCLOBENZAPRINE10 MG PO; -ULTRAM50 MG PO
[2016-10-08 20:10] LABS: BASOPHILS 0.4 % (0-2); EOSINOPHILS 2.1 % (0-7); HEMOGLOBIN 9.6 g/dL (13.5-17.5); IMMATURE GRANULOCYTES 0.2 % (0-5); LYMPHOCYTES 15.8 % (15-50); MCH 30.9 pg (26.0-34.0); MCHC 33.1 g/dL (31.0-37.0); MCV 93.2 fL (80.0-100.0); MEAN PLATELET VOLUME 9.9 fL (7.4-10.4); MONOCYTES 11.6 % (2-11); NEUTROPHILS 69.9 % (40-80); PLATELET COUNT 155 10x3/uL (130-400); RBC 3.11 10x6/uL (4.20-6.10); RDW 13.4 % (11.5-14.5); WBC 8.2 10x3/uL (4.8-10.8)
[2016-10-08 20:39] LABS: ALBUMIN 3.2 g/dL (3.4-5.0); ALKALINE PHOSPHATASE 84 U/L (46-116); ALT (SGPT) 36 U/L (10-68); BILIRUBIN - TOTAL 0.56 mg/dL (0.2-1.3); CALC OSMOLALITY 267 mosm/kg (275-300); CALCIUM 8.1 mg/dL (8.5-10.1); CARBON DIOXIDE 28.7 mmol/L (21.0-32.0); CHLORIDE - SERUM 97 mmol/L (98-107); CREATININE - SERUM 0.9 mg/dL (0.6-1.3); GLUCOSE 103 mg/dL (74-106); PROTEIN - SERUM 6.7 g/dL (6.4-8.2); SODIUM 132 mmol/L (136-145); UREA NITROGEN 20 mg/dL (7-18); eGFR NON AFRICAN AMERICAN 88 mL/min (90-120)
[2016-10-08 20:41] LABS: CKMB 7.4 U/L (0.0-3.6)
[2016-10-08 20:55] LABS: AMYLASE - SERUM 46 U/L (25-115); CHOL - HDL RATIO 1.6 ratio (2.3-4.9); CHOLESTEROL, TOTAL 119 mg/dL (0-200); CREATINE KINASE 888 UL (21-232); HDL CHOLESTEROL 76 mg/dL (32-96); LDL CHOLESTEROL 38 mg/dL (0-100); LDL-HDL RATIO 0.5 ratio (1.5-3.5); LIPASE 106 U/L (73-393); PRO BNP 792 pg/mL (0-125); TRIGLYCERIDE 29 mg/dL (30-200); TROPONIN-I 0.034 ng/mL (0.000-0.060)
[2016-10-08 22:28] VITALS: BP 112/90; Ht 167.6 cm; Wt 82.0 kg
[2016-10-08] MEDS ORDERED: BAYER CHEWABLE81 MG PO (22:37)
[2016-10-08] MEDS ORDERED: CYCLOBENZAPRINE10 MG PO (22:49)
[2016-10-08] MEDS ORDERED: ULTRAM50 MG PO (22:49)
--- NOTE | 2016-10-08 23:41 | NUR ---
PT ARRIVED VIA W/C FROM ER AT 2210 HRS. PT DENIED ANY DISCOMFORT. 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 VSS. IV TO RAC SL. LUNGS DIMINISHED INBASES BILAT. MINOR SWELLINT TO UPPER R LEG NOTED. DR. DELAROSA HERE TO AZEEM. ASMISSION ASSESSMENT; HISTORYAND HOME MED REC COMPLETED. D51/2NS AT 75CC/HR STARTED PER ORDERS. PT CURRENTLY WATCHING TV. DENIES ANY DISCOMFORT. SR UP X2, CALL LIGHT WITHIN REACH.
[2016-10-09] VITALS: BP 112/90
--- NOTE | 2016-10-09 01:10 | NUR ---
PT RESTING WITH EYES CLOSED. RESP EVEN AND REGULAR. SR UP X2, CALL LIGHT WITHIN REACH.
[2016-10-09 02:51] LABS: BASOPHILS 0.4 % (0-2); EOSINOPHILS 4.8 % (0-7); HEMATOCRIT 24.4 % (42.0-54.0); HEMOGLOBIN 8.2 g/dL (13.5-17.5); IMMATURE GRANULOCYTES 0.2 % (0-5); LYMPHOCYTES 22.7 % (15-50); MCH 31.1 pg (26.0-34.0); MCHC 33.6 g/dL (31.0-37.0); MCV 92.4 fL (80.0-100.0); MEAN PLATELET VOLUME 10.2 fL (7.4-10.4); NEUTROPHILS 52.9 % (40-80); PLATELET COUNT 136 10x3/uL (130-400); RBC 2.64 10x6/uL (4.20-6.10); RDW 13.3 % (11.5-14.5)
[2016-10-09 02:53] LABS: WBC 5.5 10x3/uL (4.8-10.8)
[2016-10-09 03:08] LABS: CALC OSMOLALITY 274 mosm/kg (275-300); CALCIUM 7.9 mg/dL (8.5-10.1); CARBON DIOXIDE 29.3 mmol/L (21.0-32.0); CHLORIDE - SERUM 101 mmol/L (98-107); CREATININE - SERUM 0.9 mg/dL (0.6-1.3); GLUCOSE 110 mg/dL (74-106); POTASSIUM - SERUM 3.6 mmol/L (3.5-5.1); SODIUM 136 mmol/L (136-145); TROPONIN-I 0.042 ng/mL (0.000-0.060); UREA NITROGEN 18 mg/dL (7-18); eGFR NON AFRICAN AMERICAN 88 mL/min (90-120)
--- NOTE | 2016-10-09 03:41 | NUR ---
PT RESTING WITH EYES CLOSED. RESP EVEN AND REGULAR. SR UP X2, CALL LIGHT WITHIN REACH.
[2016-10-09 04:00] VITALS: BP 114/58
--- NOTE | 2016-10-09 04:38 | NUR ---
PT RESTING WITH EYES CLOSED. RESP EVEN AND REGULAR. SR UP X2, CALL LIGHT WITHIN REACH.
--- NOTE | 2016-10-09 05:48 | NUR ---
VSS THROUGHOUT NIGHT. SR WITH 1ST DEGREE AV BLOCK PER CM. PT DENIED ANY DISCOMFORT. DR TUCKER HERE TO EVAL. NEEDS MET; WILL CONTINUE TO MONITOR.
[2016-10-09 08:00] VITALS: BP 150/74
--- NOTE | 2016-10-09 09:40 | NUR ---
TELEMETRY SR. NO C/O C/P NOTED. CONSENTS SIGNED FOR [facility]. WILL CONT. PLAN OF CARE.
[2016-10-09 16:00] VITALS: BP 120/54
--- NOTE | 2016-10-09 16:11 | NUR ---
UP AMBULATING HALLWAY.
--- NOTE | 2016-10-09 16:24 | HP ---
PATIENT: BRICE GEORGE MEDICAL RECORD: [id number] ACCOUNT: [id number] LOCATION:[address] : 41 ADMISSION DATE: 10/08/16 HISTORY AND PHYSICAL EXAMINATION REASON FOR ADMISSION: Lightheadedness and shoulder pain. HISTORY OF PRESENT ILLNESS: The patient is a 75-year-old male with history of coronary artery disease, who had fallen at home 2 days ago, striking his right elbow and thigh on the ground. He was seen in my office yesterday for bruising on his right thigh. He is complaining of hip pain at that time and a hip film and femur film showed no evidence of fracture. He did have some subcutaneous hematoma due to trauma and Plavix therapy. He was allowed to go home with icepack therapy. He said he was standing in his kitchen this afternoon trying to fix some dinner, became lightheaded like he would faint. He did have some discomfort up in the shoulder blades and became anxious. He did not have any diaphoresis, chest pain or marked shortness of breath. He drove to a clinic on [facility] where they did an EKG, but said they cannot do cardiac enzymes, recommended that he come to the ED, which he did. On arrival in the Emergency Room, he was pain free and nonsyncopal. He was slightly hypotensive with blood pressure of 112/58. His EKG shows sinus bradycardia, but no acute ST-T wave changes except for T-wave inversion in the lateral leads, unchanged from prior. He was admitted because of atypical symptoms potentially for angina and history of LAD, PTCA in 2015. PAST MEDICAL HISTORY: Paroxysmal atrial fibrillation, history of CHF January 2016 with echocardiogram showing severely dilated and eccentric LVH, global hypokinesis with EF of 40% to 45%, left atrium at 4.2 cm. He underwent a PTCA of the LAD by Dr. Dorado with drug-eluting stent times 2, follow up PTCA of the left circumflex. He was hospitalized in August of this year for urinary retention, underwent a GreenLight TURP by Dr. Barrera. Other past history of hypothyroidism, Raynaud's, essential hypertension, prostatitis, thyroidectomy for benign reasons in the past, osteoarthritis, BPH, and GERD. PAST SURGICAL HISTORY: Left hip ORIF for fracture in August 2015 with gamma nail, ventral hernia repair with mesh in 2012, umbilical hernia repair in the past, PTCA times 2, partial thyroidectomy. SOCIAL HISTORY: recently as of sudden . He has worked part-time at [employer] after a long stay in cardiac rehabilitation. He is nonsmoker and nondrinker. FAMILY HISTORY: Father at 75 from CAD and hypertension. Mother at 75 from Alzheimer dementia. Paternal grandfather had cancer of the prostate. HOME MEDICATIONS: Trimpex 100 mg p.o. daily, Flexeril 10 mg t.i.d. p.r.n. muscle spasm, Plavix 75 mg a day, amiodarone 400 mg b.i.d., atenolol 12.5 mg p.o. daily, losartan 50 mg p.o. daily, omega 3 fatty acids 300 mg p.o. daily, aspirin 325 a day, tramadol 50 mg q.8 p.r.n. severe pain, Lasix 20 mg p.o. q.a.m., potassium chloride 20 mEq p.o. b.i.d., Synthroid 0.175 mcg p.o. q.a.m. a.c. breakfast, Proscar 5 mg at bedtime. ALLERGIES: SULFA, LISINOPRIL AND PSEUDOEPHEDRINE. REVIEW OF SYSTEMS: HISTORY AND PHYSICAL [id number] BRICE GEORGE GENERAL: He has been fatigued for the last 2 days since his fall. Denies any fever. HEENT: No recent visual change, sinus congestion, or sore throat. RESPIRATORY: No severe cough. CARDIAC: No exertional chest pain, did have shoulder blade pain with this near syncopal episode. Denies palpitations or recent edema. GASTROINTESTINAL: No nausea, vomiting, change in stools or blood per rectum. GENITOURINARY: He has had improvement in urination since TURP and some mild incontinence, no hematuria. ENDOCRINE: Denies polyuria, polydipsia, heat or cold intolerance or weight loss or weight gain. INTEGUMENT: No rash or itching. PSYCHIATRIC: Denies depressed mood. MUSCULOSKELETAL: He has chronic lumbago. PHYSICAL EXAMINATION: VITAL SIGNS: Temperature is 98.7 Fahrenheit orally, pulse 61 and regular, respirations are 20, blood pressure 112/58 with a sat of 100% on room air. NEUROLOGIC: The patient is alert and oriented. Denies pain currently. HEENT: Normocephalic. Eyes are clear and nonicteric. Oropharynx unremarkable. NECK: No bruits or masses. CHEST: Clear throughout without wheeze or rales. HEART: Bradycardic without murmur. ABDOMEN: Soft, nontender. GENITOURINARY: Unremarkable, prostate deferred. EXTREMITIES: He has some bruising and swelling of his right lateral quadriceps lateralis from his fall, hip has good range of motion. No peripheral edema is appreciated. NEUROLOGICAL: Grossly intact. LABORATORY DATA: His white count is 8200 with H&H of 9.6 and 29.0. Platelet count is 155, neutrophils of 69, lymphocytes of 15. Chemistry: Sodium is 132, potassium is 4, BUN is 20, creatinine is 0.9, and calcium is 8.1. Total CPK is 888. His CPK-MB of 7.4. Troponin is normal at 0.034. ProBNP is 792. Cholesterol 119. Lipase and amylase are normal. Chest x-ray shows no active disease. ASSESSMENT: 1. Near syncopal episode with upper back pain. 2. Sinus bradycardia due to a history of paroxysmal atrial fibrillation. 3. Hypotension. 4. Anemia of blood loss from recent fall, possibly causing symptomatology. 5. History of multivessel coronary artery disease, ____ PTCA of the LAD and circumflex, 2016. 6. History of congestive heart failure with global hypokinesis, improved. 7. Hypothyroidism. 8. Hypertension. 9. Hyperlipidemia. 10. Situational depression. PLAN: The patient will be admitted to the cardiac floor for serial cardiac enzymes and monitoring for further symptomatology. Cardiology has been consulted. TRANSINT:[id number] Voice Confirmation ID: [id number] DOCUMENT ID: [id number] HISTORY AND PHYSICAL [id number] BRICE GEORGE TIMOTHY MD at 1624 CC: [id number] DICTATION DATE: 10/08/162253 DEAN OF STUDENT SERVICES: 10/09/16 0101 ADM IN [place] [id number] [place] [address]
--- NOTE | 2016-10-09 19:00 | NUR ---
RECEIVED REPORT AND ASSUMED PT CARE FROM DAY SHIFT NURSE AT THIS TIME.
--- NOTE | 2016-10-09 21:19 | NUR ---
PT C/O BILAT LOWER EXTREMITY MUSCLE CRAMPS. REQUESTS A MUSCLE RELAXER. CYCLOBENZAPRINE 10 MG PO GIVEN. WILL MONITOR.
[2016-10-09 22:11] VITALS: BP 167/66
[2016-10-10 00:52] VITALS: BP 186/75
[2016-10-10 04:38] VITALS: BP 118/70
[2016-10-10 06:17] LABS: BASOPHILS 0.6 % (0-2); EOSINOPHILS 5.8 % (0-7); HEMATOCRIT 24.1 % (42.0-54.0); IMMATURE GRANULOCYTES 0.2 % (0-5); MCH 31.4 pg (26.0-34.0); MCHC 33.2 g/dL (31.0-37.0); MEAN PLATELET VOLUME 10.4 fL (7.4-10.4); MONOCYTES 17.1 % (2-11); NEUTROPHILS 51.3 % (40-80); PLATELET COUNT 159 10x3/uL (130-400); RBC 2.55 10x6/uL (4.20-6.10); RDW 13.5 % (11.5-14.5); WBC 5.4 10x3/uL (4.8-10.8)
[2016-10-10 06:26] LABS: MCV 94.5 fL (80.0-100.0)
[2016-10-10 06:58] LABS: CALC OSMOLALITY 276 mosm/kg (275-300); CALCIUM 7.5 mg/dL (8.5-10.1); CARBON DIOXIDE 29.1 mmol/L (21.0-32.0); CHLORIDE - SERUM 103 mmol/L (98-107); CREATININE - SERUM 0.8 mg/dL (0.6-1.3); GLUCOSE 98 mg/dL (74-106); POTASSIUM - SERUM 3.9 mmol/L (3.5-5.1); SODIUM 137 mmol/L (136-145); UREA NITROGEN 20 mg/dL (7-18); eGFR NON AFRICAN AMERICAN > 90 mL/min (90-120)
[2016-10-10 10:10] VITALS: BP 152/68
[2016-10-10 12:54] VITALS: BP 129/62
[2016-10-10 16:23] VITALS: BP 148/91
--- NOTE | 2016-10-10 20:11 | NUR ---
DC INSTRUCTIONS GIVEN, PT VERBALIZES UNDERSTANDING. NO NEW MED CHANGES. IVSL REMOVED WITH CATH TIP INTACT. TELE REMOVED AND RETURNED TO TEACHER RESOURCE.
== END 2016-10-10 20:20 | disposition home or self-care (01) ==
LOC: D.ER 19:30 → D.M2 21:34 → OBSVTIME 21:34 → D.M2 21:34
PROVIDERS: Emergency Medicine; Family Medicine; ADMIT Family Medicine
DX: D62 Acute posthemorrhagic anemia (principal); I48.0 Paroxysmal atrial fibrillation; S70.11XA Contusion of right thigh, initial encounter; W19.XXXA Unspecified fall, initial encounter; M25.511 Pain in right shoulder; I95.9 Hypotension, unspecified; E78.5 Hyperlipidemia, unspecified; I25.10 Atherosclerotic heart disease of native coronary artery without angina pectoris; Z95.5 Presence of coronary angioplasty implant and graft; I10 Essential (primary) hypertension; N40.0 Benign prostatic hyperplasia without lower urinary tract symptoms; K21.9 Gastro-esophageal reflux disease without esophagitis; E03.9 Hypothyroidism, unspecified

== ENCOUNTER → 2016-10-12 18:43 | Outpatient (CLI) | payer MEDICARE, BC ==
[2016-10-08 22:28] VITALS: BMI 27.8
[~2016-10-12 18:43] MED LIST changes: +BAYER CHEWABLE81 MG PO; +CYCLOBENZAPRINE10 MG PO; +ULTRAM50 MG PO
== END | disposition home or self-care (01) ==
LOC: D.LABREF 18:43
DX: N39.0 Urinary tract infection, site not specified (principal)

== ENCOUNTER 2016-11-14 00:18 | Inpatient (IN) | payer MEDICARE, BC ==
[2016-11-14] VITALS (22 sets, daily range): BP systolic 111–165; BP diastolic 56–93; BMI 26.4
[~2016-11-14] VITALS: Ht 172.7 cm; Wt 74.1 kg
--- NOTE | ~2016-11-14 | EEG ---
PATIENT:BRICE GEORGE DATE OF SERVICE: 11/14/16 MEDICAL RECORD: [id number] DATE OF : 42 LOCATION:D.0 D.CVI ADMISSION DATE: 11/14/16 REFERRING PHYSICIAN: INTERPRETING PHYSICIAN: HUMBERTO LAU MD DATE OF SERVICE: 11/14/2016 Electroencephalographic Report REFERRED BY: Dr. Benitez as an inpatient, currently in room CVU 8. ELECTROENCEPHALOGRAM NUMBER: [id number]. DATE OF EXAMINATION: 11/14/2016 at 1:30 p.m. TECHNICAL DATA: This electroencephalographic recording consists of approximately 20 minutes of data collection utilizing the international 10/20 system of electrode placement and both referential and non-referential montages. Sixteen channels of electrocerebral recording are accompanied by a 17th channel dedicated to the electrocardiographic rhythm and 2 channels of electromyographic recording. Recording is performed entirely in the lethargic state utilizing activation by photic stimulation. ELECTROENCEPHALOGRAPHIC DATA: The entirety of the recorded electrocerebral activity is performed in the lethargic state. Rapid eye movements are rarely seen. Slow eye movements are seen intermittently throughout. Electromyographic artifact remains prominent. The posterior dominant background is not observed. The study is monotonous and consists of a mixture of slow wave activities that are generalized and symmetric in distribution, irregular in morphology and ranging from 1-3 Hz. There is some faster activity in the range of 10-11 Hz in the central region, more prominent than on the right. No focal slowing is identified. No epileptiform discharges are seen. Photic stimulation induces no abnormal change in the recorded electrocerebral activity. Note is made that the patient is "jerking" or posturing through much of the recording. Electromyographic artifact is prominent and muscle artifact demonstrates some focal muscular activity. However, there is no accompanying electrocerebral change to suggest an epileptiform etiology. INTERPRETATION: Continuous slow, generalized (lethargy). This electroencephalographic recording is indicative of a moderate diffuse encephalopathy. TRANSINT:[id number] Voice Confirmation ID: [id number] DOCUMENT ID: [id number] ELECTROENCEPHALOGRAM REPORT [id number] BRICE GEORGE HUMBERTO LAU MD CC: [id number] DICTATION DATE: 11/14/16 1445 GROUND INSTRUCTOR BASIC: 11/15/16 0315 ADM IN [place] [id number] [place] [address]
[2016-11-14 01:10] LABS: BASOPHILS 0.3 % (0-2); EOSINOPHILS 3.2 % (0-7); HEMATOCRIT 36.5 % (42.0-54.0); HEMOGLOBIN 12.3 g/dL (13.5-17.5); IMMATURE GRANULOCYTES 0.4 % (0-5); LYMPHOCYTES 16.8 % (15-50); MCH 31.6 pg (26.0-34.0); MCHC 33.7 g/dL (31.0-37.0); MCV 93.8 fL (80.0-100.0); MEAN PLATELET VOLUME 10.4 fL (7.4-10.4); MONOCYTES 8.6 % (2-11); NEUTROPHILS 70.7 % (40-80); PLATELET COUNT 175 10x3/uL (130-400); RBC 3.89 10x6/uL (4.20-6.10); RDW 13.6 % (11.5-14.5); WBC 10.4 10x3/uL (4.8-10.8)
[2016-11-14 01:19] LABS: INR 1.07 (0.85-1.17); PROTIME 13.7 SECONDS (11.6-15.0)
[2016-11-14 01:23] LABS: ALBUMIN 3.5 g/dL (3.4-5.0); ALKALINE PHOSPHATASE 127 U/L (46-116); ALT (SGPT) 40 U/L (10-68); BILIRUBIN - TOTAL 0.38 mg/dL (0.2-1.3); CALC OSMOLALITY 271 mosm/kg (275-300); CALCIUM 8.2 mg/dL (8.5-10.1); CARBON DIOXIDE 25.5 mmol/L (21.0-32.0); CHLORIDE - SERUM 98 mmol/L (98-107); CREATININE - SERUM 0.8 mg/dL (0.6-1.3); PROTEIN - SERUM 7.8 g/dL (6.4-8.2); SODIUM 134 mmol/L (136-145); UREA NITROGEN 16 mg/dL (7-18); eGFR NON AFRICAN AMERICAN > 90 mL/min (90-120)
[2016-11-14 01:32] LABS: GLUCOSE 146 mg/dL (74-106)
[2016-11-14 01:38] LABS: APPEARANCE CLEAR (CLEAR); BILIRUBIN NEGATIVE (NEGATIVE); COLOR YELLOW (YELLOW); GLUCOSE NEGATIVE (NEGATIVE); KETONE NEGATIVE (NEGATIVE); LEUKOCYTE ESTERASE NEGATIVE (NEGATIVE); NITRITE NEGATIVE (NEGATIVE); PH 5.5 (5.0-6.0); PROTEIN TRACE mg/dL (NEGATIVE); SPECIFIC GRAVITY 1.015 (1.005-1.020); UROBILINOGEN NORMAL (NORMAL)
[2016-11-14 01:45] LABS: BACTERIA MODERATE /hpf (NONE SEEN); EPITHELIAL CELLS OCC /hpf (0-5); RED CELLS - URINE 0-5 /hpf (0-5); WHITE CELLS - URINE 0-5 /hpf (0-5)
--- NOTE | 2016-11-14 03:00 | NUR ---
Received patient from ER @ 0240 via stretcher, Assessment completed per flowsheet. Patient unresponsive to commands, unable to assess LOC. Pupils 2mm and fixed, unresponsive to light. ETT 8.0 @ 22cm noted, secured. S1/S2 noted Sinus Prsaanna on telemetry with HR 56, rhythmic and regular. Vent settings A/C R-20 V-600 50% P-5, Lung sounds clear bilateral upper and mid with diminished lower. Abdomen is flat and soft, bowel sounds Active x4. Cabrera secured via statlock, clear yellow urine noted. All extremities flaccid with no response to commands, all pulses palpable with cap refill <3 sec. 20g PIV noted bilateral forearms, patent with dressing secured. Patient has bruising/scabs noted all over body with small sores noted on arms/legs, scar noted mid sternum. Unable to assess pain at this time, no further needs. Patient connected to monitors, and will continue plan of care.
--- NOTE | 2016-11-14 07:20 | NUR ---
SPOKE TO DR MUSA, CT/CTA TO BE ORDERED. RADIOLOGY NOTIFIED AND ORDERS PLACED.
--- NOTE | 2016-11-14 07:25 | NUR ---
NOTIFIED CT THAT DR. MUSA WANTS A STAT HEAD CT SCAN
--- NOTE | 2016-11-14 07:45 | NUR ---
ASSESSMENT COMPLETE. PT ON VENT, NO SEDATION. RESPONDS WITH EXTENSION, DECORTICATE POSTURING WITH PAINFUL STIMULI TO THE STERNUM. PUPILS FIXED AT 2MM. SEE FLOWSHEET FOR VENT SETTINGS. CRACKLES IN RUL, RML, LEO. DIMINISHED LOWER LOBES BILAT. NSR ON MONITOR. S1S2 NOTED, RADIAL AND PEDAL PULSES PALP. HEMODYNAMICALLY VSS. HYPOACTIVE BOWEL SOUNDS X4. FLACCID EXTREMETIES. FOR OTHER ASSESSMENT FINDINGS SEE FLOWSHEET. WOO DRAINING CLOUDY URINE.
--- NOTE | 2016-11-14 09:55 | NUR ---
PT HAVING SEIZURE-LIKE ACTIVITY, BECOMING TENSE FOR 10 SECONDS THEN RELEASING. APPEARS RESTLESS. ATIVAN ON AUG.
--- NOTE | 2016-11-14 10:07 | NUR ---
SPOKE WITH DR. MUSA. TRYING TO GET IN TOUCH WITH FAMILY SO DARLYENE CAN NOTIFY THEM OF PT'S CONDITION.
--- NOTE | 2016-11-14 11:25 | NUR ---
SPOKE WITH SON. SAID HE WAS ON HIS WAY. DARLEONELAENE AT BEDSIDE
--- NOTE | 2016-11-14 13:10 | NUR ---
DR SHAFFER AT BEDSIDE. AWARE OF PATIENT'S ELEVATED BP AND TEMP OF 99.8
--- NOTE | 2016-11-14 13:50 | NUR ---
PAGED DR. MCKEON ABOUT CONSULT FOR CVL. TRIED TO CALL RO[facility] MARY WITH DR. MUSA, UNABLE TO LEAVE VOICEMAIL OR CONTACT HER.
--- NOTE | 2016-11-14 14:14 | NUR ---
SPOKE WITH DR. MUSA, HE SAID IT IS OK TO GIVE MANNITOL
--- NOTE | 2016-11-14 15:33 | NUR ---
SPOKE WITH DR. MCKEON ABOUT CENTRAL LINE PLACEMENT
--- NOTE | 2016-11-14 16:55 | NUR ---
OBTAINED CONSENT OVER THE PHONE FROM PT'S SON DANIELLE GEORGE FOR A CENTRAL LINE
--- NOTE | 2016-11-14 17:15 | NUR ---
DR. MUSA AT BEDSIDE.
--- NOTE | 2016-11-14 19:15 | NUR ---
Received patient laying in bed on vent, assessment completed per flowsheet. Patient unresponsive with decerebrate posturing noted. Pupils @ 2mm and fixed, unresponsive to light. ETT 8.0 @ 22cm noted, secured. S1/S2 noted Sinus Prasanna on telemetry with HR 51, rhythmic and regular. Crackles noted bilateral upper and mid with diminished lower, Vent settings A/C R-22 V-600 40% P-3. Abdomen is flat and soft, bowel sounds hypoactive x4. Cabrera secured in place with cloudy yellow urine noted. No movement noted in extremities, all pulses palpable with cap refill <3 sec. L subclavian CVL noted, patent with dressing CDI. CVP connected @ 18mmHg, zeroed with normal waveform. Oral care/suctioning provided with patient repositioned. Unable to assess pain, no further needs at this time. All VSS and will continue to monitor.
--- NOTE | 2016-11-14 22:06 | HP ---
PATIENT: BRICE GEORGE MEDICAL RECORD: [id number] ACCOUNT: [id number] LOCATION:[facility].CV08 : 41 ADMISSION DATE: 11/14/16 HISTORY AND PHYSICAL EXAMINATION REASON FOR ADMISSION: Altered mental status. HISTORY OF PRESENT ILLNESS: The patient is a 76-year-old male with history of CAD and CHF, who became unresponsive and brought by ambulance to the ED. He was seen initially by Dr. Haritha Mayer. CT scan of the brain emergently showed a large left thalamic bleed with extension into the lateral ventricles, third and fourth ventricles. The patient was intubated and moved to the CCU. There has been no seizure activity as yet reported by staff. He at this time is minimally responsive on the ventilator. He has no previous history of recent headache. The patient has been on Plavix after 2-vessel CAD and PTCA last year and 81 mg aspirin for paroxysmal atrial fibrillation. PAST MEDICAL HISTORY: Two-vessel CAD, CHF, hypothyroidism, BPH, post-TURP with chronic prostatitis and essential hypertension. Other past medical history, had Raynaud's phenomenon and congestive heart failure 2016 with CAD, myocardial infarction, PAF, osteoarthritis, GERD and situational depression after 's last year. PAST SURGICAL HISTORY: He has had thyroidectomy, TURP, PTCA times 2, ventral hernia repair, had a gamma nail in his left hip in 2016 for a fall with fracture. SOCIAL HISTORY: He is last year. Works part-time at [employer]. Nonsmoker and nondrinker. ALLERGIES: SULFA AND LISINOPRIL. FAMILY HISTORY: Mother at 75 with Alzheimer dementia. Maternal grandfather had cancer of the prostate. Father at 75 from CAD and hypertension. MEDICATIONS Trimpex 100 mg a day, Plavix 75 mg a day, Flexeril 10 mg at bedtime p.r.n. muscular back pain, amiodarone 400 mg p.o. b.i.d., atenolol 12.5 mg p.o. daily, losartan 50 mg a day, omega 3 fatty acids 300 mg daily, aspirin 81 mg daily, tramadol 50 mg q. 6 for back pain, Lasix 20 mg p.o. daily, potassium 20 mEq p.o. b.i.d., levothyroxine 0.175 mg daily and Proscar 5 mg at bedtime. REVIEW OF SYSTEMS: Unobtainable from the patient. PHYSICAL EXAMINATION: VITAL SIGNS: Current blood pressure is 111/92, respirations of 20 on the ventilator, pulse is 62, temperature is 98 degrees Fahrenheit and pulse ox 99% on ventilator at 50% FiO2. GENERAL: The patient is normocephalic. HEENT: His eyes show downward eye movements with pupils 3 mm and sluggish. No nystagmus noted. Oropharynx: The patient is intubated. There was some bruising of the tongue noted. NECK: Supple. CHEST: Clear. HEART: Regular rate and rhythm. HISTORY AND PHYSICAL [id number] BRICE GEORGE ABDOMEN: Soft, nontender. GENITOURINARY: Cabrera in place. No blood in the urine is appreciated. EXTREMITIES: No CC&E. NEUROLOGICAL: The patient currently is not responsive to painful stimuli. At this time, he is doing some posturing in the upper extremities. IMAGING: CT of the brain shows above findings. LABORATORY DATA: His white count is 10,000, H&H 12.3 and 36.5. Potassium is 3.0, sodium is 134, glucose is 146 and calcium 8.2. Urine shows moderate bacteria. PT is 1.07. Chest x-ray shows endotracheal tube in good position, mild congestive heart failure pattern. 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 PLAN: The patient was seen by neurosurgical and repeat CT scan is being performed this morning. We will place potassium at this time. Place on Keppra for seizure prophylaxis. We will contact his sons to assess the gravity of his current illness. TRANSINT:[id number] Voice Confirmation ID: [id number] DOCUMENT ID: [id number] MARIO DELAROSA MD at 2206 CC: [id number] DICTATION DATE: 11/14/16836 CLINICAL ACCOUNT MANAGER: 11/14/16 0948 ADM IN [place] [address] [place] [address]
--- NOTE | 2016-11-14 23:00 | NUR ---
Reassessment completed per flowsheet, patient laying in bed on vent. Patient unresponsive with decerebrate posturing noted. Pupils remain fixed @ 2mm with no response to light. S1/S2 noted Sinus Prasanna on telemetry with HR 60, rhythmic and regular. Vent settings unchanged from previous, O2 sat 97%. Oral care/suctioning provided, repositoned in bed. Unable to assess pain, no further needs at this time. All VSS and will continue to monitor.
[2016-11-15] VITALS (39 sets, daily range): BP systolic 95–185; BP diastolic 52–96
--- NOTE | 2016-11-15 | NUR ---
CHECKED TEMP WAS 100.4 PT WAS LEFT WITH NO BLANKETS ON. PT POSITIONED FOR COMFORT ORAL CARE DONE.
--- NOTE | 2016-11-15 03:00 | NUR ---
Reassessment completed per flowsheet, patient laying in bed on vent. Patient unresponsive with pupils fixed @ 2mm, no response to light. S1/S2 noted NSR on telemetry with HR 61, rhythmic and regular. Vent settings unchanged, O2 sat 97%. Oral care/suctioning performed, repositioned for comfort. Unable to assess pain, no further needs at this time. All VSS and will continue to monitor.
--- NOTE | 2016-11-15 04:15 | NUR ---
PATIENT SBP > 160, NICARDIPINE DRIP INITIATED PER ORDERS. WILL CONTINUE TO MONITOR.
[2016-11-15 04:53] LABS: BASOPHILS 0.1 % (0-2); EOSINOPHILS 0.1 % (0-7); HEMATOCRIT 34.6 % (42.0-54.0); HEMOGLOBIN 11.5 g/dL (13.5-17.5); IMMATURE GRANULOCYTES 0.2 % (0-5); LYMPHOCYTES 10.6 % (15-50); MCH 31.2 pg (26.0-34.0); MCHC 33.2 g/dL (31.0-37.0); MCV 93.8 fL (80.0-100.0); MEAN PLATELET VOLUME 10.4 fL (7.4-10.4); MONOCYTES 10.5 % (2-11); NEUTROPHILS 78.5 % (40-80); PLATELET COUNT 216 10x3/uL (130-400); RBC 3.69 10x6/uL (4.20-6.10); RDW 13.8 % (11.5-14.5); WBC 9.6 10x3/uL (4.8-10.8)
[2016-11-15 05:05] LABS: APTT 23.2 SECONDS (22.8-39.4)
[2016-11-15 05:07] LABS: INR 2.64 (0.85-1.17); PROTIME 28.4 SECONDS (11.6-15.0)
--- NOTE | 2016-11-15 05:30 | NUR ---
PATIENT L ARM TREMORS INCREASING, PUPILS MOVING LEFT TO RIGHT WITHOUT FOCUSING. PUPILS FIXED @ 2MM WITH NORESPONSE TO LIGHT, PATIENT DIAPHORETIC AND WARM WITH TEMP 98.[address] GREENE ABOUT PATIENT CONDITION, 1MG ATIVAN GIVEN PER ORDERS. WILL CONTINUE TO MONITOR.
[2016-11-15 06:09] LABS: ALBUMIN 3.2 g/dL (3.4-5.0); ALKALINE PHOSPHATASE 83 U/L (46-116); ALT (SGPT) 48 U/L (10-68); CALC OSMOLALITY 277 mosm/kg (275-300); CARBON DIOXIDE 27.4 mmol/L (21.0-32.0); CHLORIDE - SERUM 102 mmol/L (98-107); CREATINE KINASE 166 UL (21-232); CREATININE - SERUM 0.9 mg/dL (0.6-1.3); GLUCOSE 129 mg/dL (74-106); MAGNESIUM - SERUM 1.8 mg/dL (1.8-2.4); PHOSPHOROUS 3.4 mg/dL (2.5-4.9); PRO BNP 7827 pg/mL (0-450); PROTEIN - SERUM 7.5 g/dL (6.4-8.2); SODIUM 138 mmol/L (136-145); UREA NITROGEN 13 mg/dL (7-18); eGFR NON AFRICAN AMERICAN 87 mL/min (90-120)
[2016-11-15 06:17] LABS: POTASSIUM - SERUM 2.8 mmol/L (3.5-5.1); TROPONIN-I 0.356 ng/mL (0.000-0.060)
--- NOTE | 2016-11-15 06:50 | NUR ---
SPOKE WITH SON, AMBROCIO GEORGE, UPDATED CONDITION. SON STATES HE IS ON HIS WAY.
--- NOTE | 2016-11-15 08:44 | OP ---
PATIENT NAME: BRICE GEORGE MEDICAL RECORD: [id number] :42 LOCATION:D.CVI D.CV08 ADMISSION DATE:11/14/16 SURGEON: EMCHELLE MCKEON MD DATE OF OPERATION: 11/14/2016 SURGEON: Mechelle Mckeon MD. PREOPERATIVE DIAGNOSES: Intracerebral bleeding, peripheral IV access insufficiency. POSTOPERATIVE DIAGNOSIS: Intracerebral bleeding, peripheral IV access insufficiency. PROCEDURE: Left subclavian CVL. ANESTHESIA: Local. COMPLICATIONS: None. SPECIMENS: None. Case was clean. OPERATIVE COURSE: After consent was obtained, the patient was placed in the supine position in his ICU bed. The left chest and neck were prepped and draped in typical sterile fashion. Timeout was taken to confirm the correct patient and procedure. Left subclavian vein was cannulated on first pass. A guidewire was placed and it was removed. Local anesthetic was injected in the left chest wall. A stab incision was made with an 11-blade scalpel. The dilator was passed over the wire in a standard Seldinger fashion. The catheter was then passed from wire in standard Seldinger fashion. The wire was removed. A Biopatch was placed. The catheter was secured to the skin using 2-0 silk suture and sterile Tegaderm dressing. All 3 ports were aspirated and flushed. At the end of the procedure, all needle and instrument counts were correct. No complications occurred. The patient tolerated the procedure well. Immediate postoperative chest x-ray was performed. TRANSINT:[id number] Voice Confirmation ID: [id number] DOCUMENT ID: [id number] MECHELLE MCKEON MD at 0844 CC: [id number] DICTATION DATE: 11/14/161905 CATERING DRIVER: 11/15/16 0154 ADM IN [place] [place] [address]
--- NOTE | 2016-11-15 08:44 | CN ---
PATIENT NAME:BRICE GEORGE MEDICAL RECORD: [id number] : 42 LOCATION:JOSÉ MIGUEL.CV08 ADMIT DATE: 11/14/16 ACCOUNT: [id number] CONSULTING PHYSICIAN: MECHELLE MCKEON MD REFERRING PHYSICIAN: MARIO DELAROSA MD DATE OF CONSULTATION: 11/14/2016 Surgical Consultation SURGEON: Mechelle Mckeon MD. CHIEF COMPLAINT: Altered mental status. HISTORY OF PRESENT ILLNESS: This is a 76-year-old male who is nonresponsive in the ICU. He is ventilated. He is not sedated. He was brought in by ambulance after becoming unresponsive. The patient was admitted with a large left-sided intracerebral bleed. The patient is unresponsive and intubated. All history was reviewed through chart review and discussion with his RN. PAST MEDICAL HISTORY: Coronary artery disease, congestive heart failure, hypothyroidism, benign prostatic hypertrophy, hypertension, Raynaud's, history of myocardial infarction, paroxysmal atrial fibrillation, osteoarthritis, GERD. PAST SURGICAL HISTORY: Thyroidectomy, TURP, multiple coronary angiography, ventral hernia repair. SOCIAL HISTORY: He was last year. 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 Nonsmoker, nondrinker. ALLERGIES: SULFA AND LISINOPRIL. FAMILY HISTORY: His mother of Alzheimer's. Grandfather of prostate cancer. Father from coronary artery disease. MEDICATIONS: Please see electronic medical record for full list of medications. REVIEW OF SYSTEMS: A 12-point review of systems was unobtainable secondary to the patient's factors. PHYSICAL EXAMINATION: VITAL SIGNS: Heart rate 70, respirations 22, blood pressure ____, satting 95% on 40% FiO2 on the vent. GENERAL: This is a well-developed elderly male in severe distress. EYES: Pupils are fixed at 2-3 mm. EAR, NOSE AND THROAT: ET tube in place. Poor dentition. Mucous membranes dry. CARDIOVASCULAR: Normal sinus rhythm. PULMONARY: Breath sounds are clear bilaterally. ABDOMEN: Soft, nontender, and nondistended. SKIN: Warm and dry. EXTREMITIES: No peripheral edema. IMAGING: Chest x-ray was personally reviewed, which shows ET tube in good position with some CHF. IMPRESSION: A 76-year-old male with intracerebral hematoma, altered mental CONSULT REPORT [id number] BRICE GEORGE status, unresponsiveness, critically-ill patient requiring central venous access port. PLAN: Urgent placement of a left subclavian central venous line for serial blood monitoring, IV medications and critical illness. TRANSINT:[id number] Voice Confirmation ID: [id number] DOCUMENT ID: [id number] MECHELLE MCKEON MD at 0844 CC: [id number] DICTATION DATE: 11/14/161905 OVEREDGE MACHINE OPERATOR: 11/15/16 0030 ADM IN [place] [address] [place] [address]
--- NOTE | 2016-11-15 10:19 | NUR ---
* Is the patient Alert and Oriented? No 0 * How many steps to enter\exit or inside your home? 4-5 0 * PCP Dr. Isaac 0 * Pharmacy [facility] on [address] 0 * Preadmission Environment Home Alone 0 * ADLs Independent 0 * Equipment Bedside Commode Rolling Walker Shower Chair 0 * List name and contact numbers for known caregivers / representatives who currently or will assist patient after discharge: Nikhil Hankins [phone] Nikhil Lagos [phone] 0 * Additional services required to return to the preadmission environment? Yes 0 * Has this patient been hospitalized within the prior 30 days at any hospital? No 11/15/2016 10:19 DCP: Discharge Planning Patient Name: BRICE GEORGE Admission Status: ER Accout number: [id number] Admission Date: 11-14-2016 : 1940 Admission Diagnosis: Attending: CARLIN Current LOS: 1 Primary Insurance: MEDICARE A & B Discharge Planning Comments: CM met with Brice iqbal, & daughter in law @ bedside. Patient sedated on vent. Brice states patient, who was 03/27, was living alone and independent with ADL's & IADL's. He was not using any assistive devices & has not ever had home health services. Family does not know whether or not patient has a living will, but they are going to look in patient's documents at home. I called and spoke with MIKE Ospina @ Dr. Isaac's office - she stated they do not have one on file and that patient denied having one at last MD appt. DC plans are unknown at this time. Answered questions & concerns. CM will follow. Business Transformation Manager: Carmina Tesfaye
--- NOTE | 2016-11-15 15:00 | NUR ---
COMPLETE BATH AND LINEN CHANGE DONE
--- NOTE | 2016-11-15 19:30 | NUR ---
REPORT RECIEVED. ASSESSMENT COMPLETED. ORAL CARE GIVEN PT POSITIONED FOR COMFORT. RESTING ON VENT. SEE FLOW SHEET FOR FURTHER DETAILS.
--- NOTE | 2016-11-15 21:00 | NUR ---
PT ON VENT RESTING. PT POSITIONED FOR COMFORT ORAL CARE GIVEN.
--- NOTE | 2016-11-15 23:00 | NUR ---
ASSESSMENT COMPLETED. CONTINUE TO MONITOR. SEE FLOW SHEET
[2016-11-16] VITALS (34 sets, daily range): BP systolic 100–165; BP diastolic 55–83; Ht 172.7 cm; Wt 74.1 kg
--- NOTE | 2016-11-16 | NUR ---
PT TEMP WAS 100.4 RESTING WITH NO BLANKETS ON. POSITIONED FOR COMFORT ORAL CARE GIVEN.
--- NOTE | 2016-11-16 01:00 | NUR ---
PT RESTING ON VENT. CONTIUE TO MONITOR.
--- NOTE | 2016-11-16 03:00 | NUR ---
ASSESSMENT COMPLETED. PT POSITIONED FOR COMFORT ORAL CARE GIVEN.
[2016-11-16 04:57] LABS: BASOPHILS 0.2 % (0-2); EOSINOPHILS 0.2 % (0-7); HEMATOCRIT 35.8 % (42.0-54.0); HEMOGLOBIN 11.8 g/dL (13.5-17.5); IMMATURE GRANULOCYTES 0.3 % (0-5); LYMPHOCYTES 5.2 % (15-50); MCH 31.3 pg (26.0-34.0); MEAN PLATELET VOLUME 10.3 fL (7.4-10.4); NEUTROPHILS 83.1 % (40-80); PLATELET COUNT 205 10x3/uL (130-400); RBC 3.77 10x6/uL (4.20-6.10); RDW 13.9 % (11.5-14.5)
--- NOTE | 2016-11-16 05:00 | NUR ---
PT ON VENT RESTING. POSITIONED FOR COMFORT ORAL CARE DONE.
[2016-11-16 05:09] LABS: CALC OSMOLALITY 284 mosm/kg (275-300); CALCIUM 8.2 mg/dL (8.5-10.1); CHLORIDE - SERUM 106 mmol/L (98-107); CREATININE - SERUM 0.7 mg/dL (0.6-1.3); GLUCOSE 130 mg/dL (74-106); PHOSPHOROUS 2.9 mg/dL (2.5-4.9); SODIUM 142 mmol/L (136-145); UREA NITROGEN 13 mg/dL (7-18); eGFR NON AFRICAN AMERICAN > 90 mL/min (90-120)
[2016-11-16 05:12] LABS: POTASSIUM - SERUM 2.7 mmol/L (3.5-5.1)
--- NOTE | 2016-11-16 09:03 | NUR ---
NUTRITION MONITORING & EVAL CHART REVIEWED. SPOKE WITH NURSING, PT NOW DNR. PT REMAINS NPO ON VENT. RD FOLLOWING
--- NOTE | 2016-11-16 12:02 | NUR ---
BILATERAL WRIST RESTRAINTS REMOVED. PATIENT REPOSITIONED USING PILLOWS. HEELS BRIDGED. ORAL CARE PERFORMED.
--- NOTE | 2016-11-16 12:31 | NUR ---
CALLED DR. SHAFFER. PATIENT TEMP 100.6. T/O FOR BLOOD CULTURES, URINE CULTURE, RESP CULTURE. JUAN AT BEDSIDE FOR RESP CULTURE.
--- NOTE | 2016-11-16 13:51 | NUR ---
NGT PLACED R NARE, AUSCULTATED FOR PLACEMENT. TYLENOL GIVEN ORDERED. WILL CONTINUE TO MONITOR TEMP CLOSELY.
--- NOTE | 2016-11-16 14:09 | NUR ---
1407 BLOOD CULTURES DRAWN FROM LEFT SUBCLAVIAN CVL BLUE PORT. LABELED AT BEDSIDE AND TAKEN TO LAB.
--- NOTE | 2016-11-16 14:12 | NUR ---
CASE MANAGEMENT CALLED, PATIENT FAMILY IS REQUESTING HOSPICE EVAL.
--- NOTE | 2016-11-16 14:24 | NUR ---
CM MET WITH FAMILY AMBROCIO (SON), AND DANIELLE (SON) REGARDING A HOSPICE EVAL. FAMILY WOULD LIKE [facility] AND DR. DELAROSA WAS NOTIFIED AND AGREED. CV NURSE TO NOTIFY OTHER PHYSICIANS. REFERRAL SENT
--- NOTE | 2016-11-16 14:51 | NUR ---
ROSE MARY WITH NEURO NOTIFIED OF HOSPICE CONSULT. OK TO HOLD/CANCEL CTHEAD SHE ORDERED EARLIER THIS AM.
--- NOTE | 2016-11-16 14:56 | NUR ---
NOTIFIED DR. SHAFFER OF HOSPICE CONSULT.
--- NOTE | 2016-11-16 15:28 | NUR ---
CLAIM APPROVER AT BEDSIDE TALKING WITH FAMILY.
--- NOTE | 2016-11-16 15:55 | NUR ---
SPOKE WITH DR. LAU ON PHONE, OK HOSPICE CONSULT AND EXTUBATION.
--- NOTE | 2016-11-16 16:16 | NUR ---
TERMINAL EXTUBATION ORDERS PLACED BY DR. SHAFFER. DISCUSSED PROCESS AT LENGTH WITH FAMILY AT BEDSIDE. ALL VERBALIZED UNDERSTANDING.
--- NOTE | 2016-11-16 16:32 | NUR ---
1625 ALL FAMILY PRESENT AT BEDSIDE, MORPHINE GIVEN PER AUG.
--- NOTE | 2016-11-16 17:02 | NUR ---
1650 SPOKE WITH FREDDY AT [facility], NOTIFIED OF PLAN TO TERMINALLY EXTUBATE. STATED TO CALL WITH TIME OF CARDIAC .
--- NOTE | 2016-11-16 17:18 | NUR ---
1710 ETT/NGT REMOVED BY JUAN WITH RESP. ORAL CARE PERFORMED. NC 2L APPLIED. ATIVAN GIVEN PER MAR FOR ANXIETY WITH BREATHING. FAMILY AT BEDSIDE. WILL MONITOR CLOSELY.
--- NOTE | 2016-11-17 14:39 | EC ---
PATIENT:BRICE GEORGE DATE OF SERVICE: 11/14/16 SEX: M MEDICAL RECORD: [id number] DATE OF : 41 LOCATION:[place] [address] AGE OF PATIENT: 76 ADMISSION DATE: 11/14/16 REFERRING PHYSICIAN: INTERPRETING PHYSICIAN: JOSH ARZOLA MD ECHOCARDIOGRAM REPORT ECHO CHARGES 4 ECHO COMPLETE CLINICAL DIAGNOSIS: CHF ECHOCARDIOGRAPHIC MEASUREMENTS (adult normal given) AC root (d.<3.7cm) 4.0 LV Septum d (<1.2 cm> 1.4 Valve Excursion 1.6 LV Septum (systole) 1.8 Left Atria (s.<4.0cm> 5.1 LVPW d(<1.2cm) 1.4 RV (d.<2.3cm) 5.0 LVPW (sytole) 1.8 LV diastole(<5.6CM) 5.7 MV E-F(>70mm/sec) LV systole 4.2 LVOT Diameter 1.8 MV exc.(>10mm) 1.8 Est.ejection fraction (50-75%) Pericardial Effusion N DOPPLER: LVIT A 87.0 E 105 LA RVSP 37 LVOT 129 AOP1/2T 400 Asc. Ao 250 RVOT 103 RA PA 159 AV Gradient Peak 25.01 AV Mean 15.68 AV Area 1.2 MV Gradient Peak 5.36 MV Mean 2.28 MV Area COMMENTS: Public Area Attendant: Aruna BLEVINS Extension Forester:Jocelin Andujar TAPE# PACS DATE OF SERVICE: 11/16/2016 Adequate 2D echo, color flow, spectral Doppler, and M-mode. LVH is present. LV internal dimension is upper limits of normal at 5.7 cm. Wall motion is normal. EF is greater than or equal to 55%. Aortic valve sclerosis without stenosis by Doppler interrogation. Left atrium is dilated at 5.1 cm. Mitral valve shows no prolapse. Mild MR. Right-sided chamber is normal. Mild TR. TRANSINT:[id number] Voice Confirmation ID: [id number] DOCUMENT ID: [id number] ECHOCARDIOGRAM REPORT [id number] BRICE GEORGE JOSH NICHOLE MD at 1437 CC: [id number] DICTATION DATE: 11/16/16 1051 SERVICE DEPARTMENT MANAGER: 11/16/16 1506 DIS IN 11/16/16 [facility] [address] [place] [address]
== END 2016-11-16 18:56 | disposition hospice, inpatient (51) | DRG 208 ==
LOC: D.ER 00:18 → D.CVICU 02:20
PROVIDERS: Family Medicine; Internal Medicine Pulmonary Disease; ADMIT Family Medicine
PROC: 0T9B70Z Drainage of Bladder with Drainage Device, Via Natural or Artificial Opening (ICD-10-PCS; principal; 2016-11-14)
PROC: 0BH17EZ Insertion of Endotracheal Airway into Trachea, Via Natural or Artificial Opening (ICD-10-PCS; 2016-11-14)
PROC: 5A1945Z Respiratory Ventilation, 24-96 Consecutive Hours (ICD-10-PCS; 2016-11-14)
PROC: 02HV33Z Insertion of Infusion Device into Superior Vena Cava, Percutaneous Approach (ICD-10-PCS; 2016-11-14)
PROC: 0D9670Z Drainage of Stomach with Drainage Device, Via Natural or Artificial Opening (ICD-10-PCS; 2016-11-16)
DX: J96.00 Acute respiratory failure, unspecified whether with hypoxia or hypercapnia (principal); I61.9 Nontraumatic intracerebral hemorrhage, unspecified; I50.23 Acute on chronic systolic (congestive) heart failure; R40.2313 Coma scale, best motor response, none, at hospital admission; R40.2113 Coma scale, eyes open, never, at hospital admission; R40.2213 Coma scale, best verbal response, none, at hospital admission; I48.0 Paroxysmal atrial fibrillation; I25.10 Atherosclerotic heart disease of native coronary artery without angina pectoris; I11.0 Hypertensive heart disease with heart failure; E03.9 Hypothyroidism, unspecified; D64.9 Anemia, unspecified; Z66 Do not resuscitate; I08.0 Rheumatic disorders of both mitral and aortic valves; Z78.1 Physical restraint status; R56.9 Unspecified convulsions; K21.9 Gastro-esophageal reflux disease without esophagitis; N40.0 Benign prostatic hyperplasia without lower urinary tract symptoms; Z87.891 Personal history of nicotine dependence

== ENCOUNTER 2016-11-16 18:54 | Inpatient (IN) | payer OTHER ==
[~2016-11-16] VITALS: Ht 172.7 cm; Wt 74.1 kg
[2016-11-16 19:22] VITALS: Ht 172.7 cm; Wt 74.1 kg
--- NOTE | 2016-11-16 20:00 | NUR ---
ADMISSION ASSESSMENT COMPLETED AND DOCUMENTED SEE FLOW SHEET FOR DETAILS. PT FAMILY HERE HAD THE SIGN THE DISCHARGE PAPER WORK AND EXPLAINED THE PROCESS OF HOSPICE.
--- NOTE | 2016-11-16 21:00 | NUR ---
SCOPOLAMINE PATCH PLACED ON LEFT UPPER CHEST. ATROPINE DROPS PLACED UNDER TONGUE TO CLEAR SECRETIONS. PT RESTING COMFORTABLY.
--- NOTE | 2016-11-16 23:00 | NUR ---
PT RESTING COMFORTABLY RESP REGULAR AND NON LABORED.
--- NOTE | 2016-11-16 23:52 | NUR ---
RECIEVED PT TO FLOOR VIA BED. PT IS NON VERBAL AND ONLY RESPONDS TO PAINFUL STIMULI. WOO IS DRAINING URINE BY GRAVITY. O2 @ 2 PER NASAL CANNULA. NO SIGNS OF DISTRESS AT THIS TIME. WILL MONITOR. SIDE RAILS X 2. BED IS IN LOWEST POSITION. CALL LIGHT IS WITHIN REACH.
[2016-11-17] VITALS: BP 142/79
--- NOTE | 2016-11-17 07:30 | NUR ---
RECIEVED PT DURING WALKING ROUNDS, PT ASLEEP WITH NO VISABLE SIGNS OF PAIN OR DISCOMFORT. ASSESSMENT DONE PER FLOWSHEET. BED IN LOW POSITION AND CALL LIGHT WITHIN REACH. WILL CONTINUE TO MONITOR.
[2016-11-17 08:29] VITALS: BP 189/92
--- NOTE | 2016-11-17 16:20 | NUR ---
INITIATED TUBING MACHINE TENDER PER ORDER AT THIS TIME.
[2016-11-17 20:00] VITALS: BP 170/96
--- NOTE | 2016-11-17 22:21 | NUR ---
PT RESTING IN BED WITH EYES CLOSED. NO SIGNS OF DISTRESS NOTED. SCHEDULED MED GIVEN. PT REPOSITIONED. BED LOW. CALL LIGHT IN REACH
--- NOTE | 2016-11-18 04:11 | NUR ---
HOSPICE PT SLEEPING. CONTINUOUS MORPHINE DRIP. RESP EVEN. NO DISTRESS NOTED. INSURANCE CLAIMS SUPERVISOR TO CONTINUE COMFORT CARE.
--- NOTE | 2016-11-18 07:30 | NUR ---
RECIEVED PT DURING WALKING ROUNDS. PT ASLEEP, ASSESSMENT DONE PER FLOWSHEET. BED IN LOW POSITION AND CALL LIGHT WITHIN REACH. WILL CONTINUE TO MONITOR.
[2016-11-18 08:09] VITALS: BP 150/84
--- NOTE | 2016-11-18 09:25 | NUR ---
WAS CALLED INTO ROOM BY AID AT THIS TIME, PT WAS NOT BREATING AND HAD NO HEARTBEAT, HOSPICE NOTIFIED WELL DR. DUNHAM.
== END 2016-11-18 11:35 | DRG 951 ==
LOC: D.CVICU 18:54 → D.MS 18:54
PROVIDERS: ADMIT Legal Medicine
DX: Z51.5 Encounter for palliative care (principal)